=== PATIENT | female | born 1950 | race Caucasian/White ===

== ENCOUNTER 2017-08-19 05:59 | Inpatient (IN) | payer OTHER, MEDICARE ==
[2017-08-19] MEDS ORDERED: SODIUM CHLORIDE 0.9% 1,000 ML IV ONE ×2 (06:50→08:29)
[2017-08-19] MEDS ORDERED: ACETAMINOPHEN 325 MG TABLET PO STA (06:50)
[2017-08-19] MEDS ORDERED: ACETAMINOPHEN 325 MG TABLET PO ONE (07:10)
--- NOTE | 2017-08-19 07:14 | XRAY Preliminary Report ---
Exam: XR CHEST 1 VIEW IMPRESSION: No radiographically apparent acute abnormality in the chest. [facility] SITE ID: [id number]
--- NOTE | 2017-08-19 07:17 | XRAY Report ---
EXAM: CHEST RADIOGRAPHY EXAM DATE: 08/19/2017 07:04 AM. CLINICAL HISTORY: Chills, immunocompromised. COMPARISON: 11/19/2010. TECHNIQUE: 1 view. FINDINGS: Lungs/Pleura: No focal consolidation. No pneumothorax or definite pleural effusion. Mediastinum: Within exam limitations, the cardiomediastinal contour is normal. Other: Right chest port catheter tip is in the mid to lower SVC. IMPRESSION: No radiographically apparent acute abnormality in the chest. [facility] Referring Provider Line: [phone] SITE ID: [id number]
[2017-08-19 07:30] LABS: BASOPHILS % (AUTO) 0.2 %; EOSINOPHILS % (AUTO) 0.3 %; HCT - HEMATOCRIT 36.4 % (37.0-47.0); LYMPHOCYTES # (AUTO) 1.4 10^3/uL (1.5-3.5); LYMPHOCYTES % (AUTO) 7.2 %; MEAN CORPUSCULAR HEMOGLOBIN 30.6 pg (27.0-31.0); MEAN CORPUSCULAR HGB CONC 33.1 g/dL (32.0-36.0); MEAN CORPUSCULAR VOLUME 92.6 fL (81.0-99.0); MEAN PLATELET VOLUME 6.8 fL (7.9-10.8); MONOCYTES # (AUTO) 0.7 10^3/uL (0.0-1.0); MONOCYTES % (AUTO) 3.8 %; NEUTROPHILS # (AUTO) 16.7 10^3/uL (1.5-6.6); NEUTROPHILS % (AUTO) 88.5 %; RED BLOOD COUNT 3.92 10^6/uL (4.20-5.40); RED CELL DISTRIBUTION WIDTH 17.3 % (12.0-15.0); UNCORRECTED WHITE BLOOD COUNT 18.8 x10^3/uL; WHITE BLOOD COUNT 18.8 x10^3/uL (4.8-10.8)
[2017-08-19 07:49] LABS: ALBUMIN/GLOBULIN RATIO 0.7 (1.0-2.2); BILIRUBIN,TOTAL 0.3 mg/dL (0.2-1.0); CALCIUM 8.5 mg/dL (8.5-10.3); POTASSIUM 3.5 mmol/L (3.5-5.0); TOTAL PROTEIN 6.1 g/dL (6.7-8.2)
--- NOTE | 2017-08-19 08:00 | ED Physician Documentation ---
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 She is subsequently had treatment with radiation therapy at [facility] in [place] and she is returned from there 5 days ago. She is bedbound and her cares for her doing all of her transfers and care. Patient herself states that she feels dehydrated and confused. Gradual onset of fever chills and confusion overnight. Review of Systems Constitutional: reports: Fever, Chills, Myalgias, Fatigue, Sweats Eyes: denies: Decreased vision Ears: denies: Ear pain Nose: denies: Rhinorrhea / runny nose, Congestion Throat: denies: Sore throat Cardiac: denies: Chest pain / pressure, Palpitations Respiratory: denies: Dyspnea, Cough GI: reports: Abdominal Pain. denies: Nausea, Vomiting, Constipation, Diarrhea : denies: Dysuria, Frequency Skin: denies: Rash Musculoskeletal: reports: Extremity pain, Extremity swelling (right leg is swollen entirely). denies: Neck pain Neurologic: denies: Generalized weakness, Focal weakness, Numbness PD PAST MEDICAL HISTORY - Past Medical History Cardiovascular: None Respiratory: None Neuro: Peripheral neuropathy Endocrine/Autoimmune: None Psych: Depression Musculoskeletal: Osteoarthritis - Past Surgical History Past Surgical History: Yes Ortho: Carpal Tunnel surgery - Present Medications Home Medications: Ambulatory Orders Medication Instructions Recorded Confirmed Acetaminophen [Tylenol Extra 500 mg PO QID 05/04/16 05/04/16 Strength] Ibuprofen [Advil] 200 mg PO DAILY 05/04/16 05/04/16 Morphine Sulfate [Ms Contin] 15 mg PO DAILY 05/04/16 05/04/16 traMADol [Ultram] 50 mg PO Q4-6H 05/04/16 05/04/16 - Allergies Allergies/Adverse Reactions: Allergies Allergy/AdvReac Type Severity Reaction Status Date / Time hydrocodone Allergy Emesis Verified 05/04/16 08:18 - Social History Does the pt smoke?: No Smoking Status: Never smoker Does the pt drink ETOH?: No Does the pt have substance abuse?: No - Immunizations Immunizations are current?: Yes PD ED PE NORMAL - Vitals Vital signs reviewed: Yes (tachy and febrile ) - General General: No acute distress, Well developed/nourished, Other (67 y/o female with dry mucous membranes and no hair appears with a blunted affect and she has some latency to answer questions. She is inacurate in her answers. ) - HEENT HEENT: PERRL, EOMI, Other (There is a well healed surgical scar over the base of the skull without evidence of drainage or inflamation. There is mild inflamation to both TM's The mucous membranes are parched. ) - Neck Neck: Supple, no meningeal sign, No bony TTP - Cardiac Cardiac: No murmur, Other (tachy to 110) - Respiratory Respiratory: No respiratory distress, Clear bilaterally - Abdomen Abdomen: Soft, Non tender - Back Back: No CVA TTP, No spinal TTP - Derm Derm: Normal color, Warm and dry, No rash - Extremities Extremities: No deformity, Other - Neuro Neuro: Other (today there is relative symetry to the face and there is right sided weakness present as prior) Eye Opening: Spontaneous Motor: Obeys Commands Verbal: Oriented GCS Score: 15 - Psych Psych: Normal mood, Other (affect is blunted) Results - Vitals Vitals: Vital Signs - 24 hr 08/19/17 06:05 Temperature 37.7 C H Heart Rate 128 H Respiratory 24 Rate Blood Pressure 147/82 H O2 Saturation 94 Oxygen O2 Source Room air - Labs Labs: Laboratory Tests 08/19/17 08/19/17 08/19/17 07:23 07:23 07:23 WBC 18.8 H RBC 3.92 L Hgb 12.0 Hct 36.4 L MCV 92.6 MCH 30.6 MCHC 33.1 RDW 17.3 H Plt Count 253 MPV 6.8 L Neut # 16.7 H Lymph # 1.4 L [place] # 0.7 Eos # 0.0 Baso # 0.0 Absolute Nucleated RBC 0.01 Nucleated RBC % 0.0 Manual Slide Review Indicated RBC Morph Micro Appear 1+ ANISOCYTOSIS Sodium 135 Potassium 3.5 Chloride 99 L Carbon Dioxide 23 Anion Gap 13.0 BUN 22 H Creatinine 1.0 Estimated GFR (MDRD) 55 L Glucose 137 H Lactic Acid 2.3 H Calcium 8.5 Total Bilirubin 0.3 AST 23 ALT 20 Alkaline Phosphatase 85 Total Protein 6.1 L Albumin 2.5 L Globulin 3.6 Albumin/Globulin Ratio 0.7 L Lipase 25 Urine Color Urine Clarity Urine pH Ur Specific [place] Urine Protein Urine Glucose (UA) Urine Ketones Urine Occult Blood Urine Nitrite Urine Bilirubin Urine Urobilinogen Ur Leukocyte Esterase Urine RBC Urine WBC Urine WBC Clumps Ur Epithelial Cells Ur Squamous Epith Cells Urine Bacteria Ur Microscopic Review Urine Culture Comments 08/19/17 08:15 WBC RBC Hgb Hct MCV MCH MCHC RDW Plt Count MPV Neut # Lymph # [place] # Eos # Baso # Absolute Nucleated RBC Nucleated RBC % Manual Slide Review RBC Morph Micro Appear Sodium Potassium Chloride Carbon Dioxide Anion Gap BUN Creatinine Estimated GFR (MDRD) Glucose Lactic Acid Calcium Total Bilirubin AST ALT Alkaline Phosphatase Total Protein Albumin Globulin Albumin/Globulin Ratio Lipase Urine Color YELLOW Urine Clarity CLOUDY Urine pH 7.0 Ur Specific [place] 1.010 Urine Protein 100 H Urine Glucose (UA) NEGATIVE Urine Ketones NEGATIVE Urine Occult Blood LARGE H Urine Nitrite POSITIVE H Urine Bilirubin NEGATIVE Urine Urobilinogen 0.2 (NORMAL) Ur Leukocyte Esterase MODERATE H Urine RBC 6-10 H Urine WBC >25 H Urine WBC Clumps PRESENT Ur Epithelial Cells RARE Transitional Ur Squamous Epith Cells FEW Squamous Urine Bacteria Many H Ur Microscopic Review INDICATED Urine Culture Comments INDICATED - Rads (name of study) 1 view chest Radiology: Prelim report reviewed (Impression: No radiographically apparent acute abnormality in the chest.), EMP read indepedently, See rad report Procedures - IVC sono (time) 3366 Bedside IVC sono: IVC measures (cm) (0.80), IVC collapsed c insp (cm) (complete) , Dehydration PD MEDICAL DECISION MAKING - ED course Complexity details: reviewed old records, reviewed results, re-evaluated patient , considered differential, d/w patient, d/w family ED course: 67-year-old female undergoing treatment for metastatic cancer has developed a low-grade fever chills and confusion and she has elevated white blood cell count and evidence of dehydration. She does appear to have Sirs now. She also has swelling of right lower extremity with concern for possible DVT. Duplex ultrasound was ordered and the patient is begun on IV's fluids and antibiotic. Departure - Departure Disposition: 66 [facility] DC/Xfer Clinical Impression: SIRS (systemic inflammatory response syndrome) Urinary tract infection Qualifiers: Urinary tract infection type: acute cystitis Hematuria presence: without hematuria Qualified Code(s): N30.00 - Acute cystitis without hematuria Condition: Serious
[2017-08-19 08:27] LABS: BILIRUBIN,URINE NEGATIVE (NEGATIVE)
[2017-08-19] MEDS ORDERED: cefTRIAXone 1 GM in SODIUM CHLORIDE 0.9% MINIBAG 100 ML IV STA (08:49)
[2017-08-19 08:50] LABS: UA w/ MICROSCOPIC CHARGE YES
[2017-08-19 08:52] LABS: UR CULTURE IF IND INDICATED; WBC,URINE >25 /HPF (0-5)
[2017-08-19] MEDS ORDERED: cefTRIAXone 1 GM VIAL ONE (09:03)
[2017-08-19] MEDS ORDERED: oxyCODONE 5 MG TABLET PO STA (09:54)
[2017-08-19] MEDS ORDERED: oxyCODONE 5 MG TABLET ONE (10:01)
--- NOTE | 2017-08-19 10:18 | Ultrasound Report ---
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 TECHNIQUE: Real-time sonographic vascular imaging was performed by the chucking and boring machine operator through the right leg utilizing both color-flow and Doppler spectral analysis. Multiple solar sales representative static images were saved for review. FINDINGS: There is thrombus in the right common femoral and throughout the extent of the right super ficial femoral vein. The profunda femoris vein is suboptimally visualized. The popliteal vein appea rs unremarkable. Note is made of right inguinal lymphadenopathy, measuring up to 2.6 cm. IMPRESSION: RIGHT LEG DVT IN THE COMMON FEMORAL AND SUPERFICIAL FEMORAL VEINS. RIGHT INGUINAL ADENO CHRIS. CRITICAL RESULT: RESULTS CALLED TO DR. RABAGO IN THE EMERGENCY DEPARTMENT ON 08/19/2017 AT 9:50 A. M. JOB #: [id number] EXT JOB #:[id number]
[2017-08-19] MEDS: oxyCODONE 5 MG TABLET PO SCH ×3 (12:51→23:00)
[2017-08-19] MEDS: DEXAMETHASONE 4 MG TABLET PO SCH (13:15)
[2017-08-19] MEDS ORDERED: PROCHLORPERAZINE 10 MG/2 ML VIAL IVP PRN (14:54)
[2017-08-19] MEDS ORDERED: MAGNESIUM SULFATE 2 GRAM 2 GM/50 ML BAG IV SCH (15:00)
[2017-08-19] MEDS: SODIUM CHLORIDE FLUSH 0.9% 10 ML SYRINGE IVP PRN (15:26)
[2017-08-19] MEDS ORDERED: MAGNESIUM SULFATE 2 GM in SODIUM CHLORIDE 0.9% 50 ML IV ONE (16:00)
[2017-08-19] MEDS: RIVAROXABAN 15 MG TABLET PO SCH (16:42)
[2017-08-19] MEDS: DEXTROSE 5%-0.45% NACL 1,000 ML IV SCH (16:42)
[2017-08-19] MEDS: FAMOTIDINE 20 MG TABLET PO SCH (21:19)
[2017-08-19] MEDS: SODIUM CHLORIDE FLUSH 0.9% 10 ML SYRINGE IVP SCH (21:22)
[2017-08-20] MEDS: DEXTROSE 5%-0.45% NACL 1,000 ML IV SCH ×2 (04:39→17:14)
[2017-08-20] MEDS: oxyCODONE 5 MG TABLET PO SCH ×5 (04:40→23:47)
[2017-08-20] MEDS: SODIUM CHLORIDE FLUSH 0.9% 10 ML SYRINGE IVP SCH ×3 (04:42→20:40)
[2017-08-20 06:35] LABS: BASOPHILS % (AUTO) 0.2 %; EOSINOPHILS % (AUTO) 0.1 %; HCT - HEMATOCRIT 30.4 % (37.0-47.0); LYMPHOCYTES % (AUTO) 7.8 %; MEAN CORPUSCULAR HEMOGLOBIN 30.7 pg (27.0-31.0); MEAN CORPUSCULAR HGB CONC 32.8 g/dL (32.0-36.0); MEAN CORPUSCULAR VOLUME 93.6 fL (81.0-99.0); MEAN PLATELET VOLUME 7.1 fL (7.9-10.8); MONOCYTES # (AUTO) 0.4 10^3/uL (0.0-1.0); NEUTROPHILS # (AUTO) 11.1 10^3/uL (1.5-6.6); NEUTROPHILS % (AUTO) 88.9 %; RED BLOOD COUNT 3.25 10^6/uL (4.20-5.40); RED CELL DISTRIBUTION WIDTH 17.4 % (12.0-15.0); UNCORRECTED WHITE BLOOD COUNT 12.5 x10^3/uL; WHITE BLOOD COUNT 12.5 x10^3/uL (4.8-10.8)
[2017-08-20 06:44] LABS: CREATININE 0.9 mg/dL (0.4-1.0); MAGNESIUM 2.1 mg/dL (1.7-2.8); POTASSIUM 3.9 mmol/L (3.5-5.0)
[2017-08-20] MEDS: RIVAROXABAN 15 MG TABLET PO SCH ×2 (08:25→16:45)
[2017-08-20] MEDS: FAMOTIDINE 20 MG TABLET PO SCH ×2 (08:25→20:39)
[2017-08-20] MEDS: DEXAMETHASONE 4 MG TABLET PO SCH (08:26)
[2017-08-20] MEDS: cefTRIAXone 1 GM in SODIUM CHLORIDE 0.9% MINIBAG 100 ML IV SCH (08:26)
[2017-08-20] MEDS: POLYETHYLENE GLYCOL 3350 17 GM PACKET PO SCH (08:27)
--- NOTE | 2017-08-20 17:48 | HISTORY & PHYSICAL EXAMINATION ---
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 The patient has a history of stage IV cancer with metastasis to the brain stem, which has been treated with radiation therapy at [facility] in [place]. She stayed there for 6 weeks and just returned from there 5 days ago. This was an airline flight home. She has been fatigued since return and nearly bedbound with care by her , who needs to give her transfer for bathrooming. The patient was brought to the emergency room because of marked weakness, pain predominantly in her head and was confused. She also developed fever and chills over the past 12 hours. In the emergency room, she was noted to have tachycardia, fever, elevated white count with urine sample consistent with a UTI. She was admitted for sepsis, UTI treatment and dehydration and pain management. PMH: BUSINESS BANKING OFFICER stage IV malignancy with mets to the brain. MEDICATIONS AT HOME: 1. Tylenol Extra Strength. 2. Advil 200 mg p.o. daily. 3. MS Contin 15 mg p.o. daily. 4. Ultram 50 mg p.o. q.4-6 hours p.r.n. pain. 5. Possibly Dexamethasone ALLERGIES: HYDROCODONE, WHICH CAUSED "EMESIS," BUT NO RASH. SOCIAL HISTORY: The patient is a nonsmoker who never smoked, drinks no alcohol, has no substance abuse history. REVIEW OF SYSTEMS: A comprehensive review of systems was performed (her gave the entire report to me) and the only pertinent positives are as above in the HPI, along with the following: Her right leg has been swollen in the calf, as well as thigh with pain and tenderness. FAMILY HISTORY: No inherited diseases. PHYSICAL EXAMINATION: GENERAL: Reveals an obtunded white female. She arouses to her name, but is unable to follow commands or answer a question (she has just received narcotic doses for pain management). VITAL SIGNS: Blood pressure 147/82, pulse of 128 and sinus tachycardia, improved with hydration down to heart rate of 90. She has a temperature of 37.7. Her respiratory rate is 24 with oxygen saturation 94% on room air. HEENT: Shows dry oral mucosa, alopecia, otherwise unremarkable. NECK: Her neck shows no JVD. No carotid bruits, no thyromegaly or lymphadenopathy. CHEST: Clear at the anterior bases. HEART: Sounds are normal. No audible murmur, rub or gallop. ABDOMEN: Soft with positive bowel sounds, nontender. EXTREMITIES: Shows the right leg to have 2+ edema up to the groin. She is nontender to light palpation. There are no cords. Negative Homans sign. The left leg appears within normal limits. NEUROLOGIC: Currently somnolent because of recent narcotic use. LABORATORY: Sodium 135, potassium 3.5, BUN 22, creatinine 1.0. Lactic acid level 2.3, magnesium 1.5. Normal liver tests, albumin 2.5, no INR was done. White count 18.8 with a left shift (16% neutrophils), hemoglobin 12, platelet count normal at 253. Her urine showed esterase moderately high with positive nitrites, large occult blood and many bacteria with only a few squamous cells with an appropriate pH of 7.0. IMPRESSION/DIAGNOSES: 1. Sepsis with elevated white count, fever, tachycardia, and elevated lactic acid level. 2. Urinary tract infection. 3. Dehydration. 4. Chronic pain. 5. Brain metastasis from primary BUSINESS BANKING OFFICER malignancy. 6. 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 PLAN: Admit the patient to a med/surg bed. Start on telemetry because of the tachycardia. Begin IV hydration, especially since she may be somnolent and unable to take adequate p.o. intake for hydration. Start the patient on IV antibiotics to cover gram-negative organisms for a urinary tract infection. Obtain blood cultures to check for bacteremia. Continue with pain medication control using IV narcotics as needed. Consider palliative care consult for management of the pain. Begin the patient on Xarelto at DVT treatment doses which should be taken with food. Continue with dexamethasone which the told me at the end of our visit that she was also on and "gave her an improved appetite." Social work and OT and PT will be ordered for evaluation. Continue to follow her electrolytes, BUN and creatinine and CBC. JOB #: [id number] EXT JOB #:[id number] [email or web address]
--- NOTE | 2017-08-20 18:43 | PROVIDER PROGRESS NOTE ---
Subjective - Prog Note Date Prog Note Date: 08/20/17 Prog Note Time: 18:41 - Subjective Pt reports feeling: Improved Subjective: She feels like she is stronger. Actually able to hold up her head and speak clearly. She said that her head was in such a fog she did know what she was saying or what she was doing yesterday. She is still really tired. But was able to feed herself breakfast and lunch. Is drinking orange juice like there is no tomorrow. She denies chest pain, shortness of breath. She denies any abdominal pain. Current Medications - Current Medications Current Medications: Active Medications Dexamethasone (Decadron) 1 mg PO DAILY [facility] Stop: 08/26/17 10:00 Dexamethasone (Decadron) 2 mg PO DAILY [facility] Stop: 08/22/17 10:00 Last Admin: 08/20/17 08:26 Dose: 2 mg Famotidine (Pepcid) 20 mg PO BID [facility] Last Admin: 08/20/17 08:25 Dose: 20 mg Ceftriaxone Sodium 1 gm/ (Sodium Chloride) 100 mls @ 200 mls/hr IV DAILY [facility] Last Infusion: 08/20/17 09:35 Dose: Infused Acetaminophen (Ofirmev) 100 mls @ 400 mls/hr IV Q6HR PRN PRN Reason: PAIN Dextrose/Sodium Chloride (D5.45ns) 1,000 mls @ 80 mls/hr IV .[id number] [facility] Last Admin: 08/20/17 17:14 Dose: 80 mls/hr Oxycodone HCl (Roxicodone) 5 mg PO Q5H [facility] Last Admin: 08/20/17 13:59 Dose: 5 mg Polyethylene Glycol (Miralax) 17 gm PO DAILY [facility] Last Admin: 08/20/17 08:27 Dose: 17 gm Prochlorperazine Edisylate (Compazine Inj) 10 mg IVP Q6HR PRN PRN Reason: Nausea / Vomiting Rivaroxaban (Xarelto) 15 mg PO 0800,1700 [facility] Last Admin: 08/20/17 16:45 Dose: 15 mg Sodium Chloride (Normal Saline Flush 0.9%) 10 ml IVP PRN PRN PRN Reason: NEEDED PER PROVIDER ORDERS Last Admin: 08/19/17 15:26 Dose: 10 ml Sodium Chloride (Normal Saline Flush 0.9%) 10 ml IVP Q8HR BAL Last Admin: 08/20/17 12:27 Dose: Not Given Acetaminophen [Tylenol Extra Strength] 500 mg PO Q6H 05/04/16 Dexamethasone 1 mg PO [id number] 08/19/17 Dexamethasone 2 mg PO [id number] 08/19/17 oxyCODONE [Roxicodone] 5 mg PO Q5H 08/19/17 Objective - Vital Signs/Intake & Output Reviewed Vital Signs: Yes Intake & Output: Intake & Output 08/17/17 08/18/17 08/19/17 08/20/17 23:59 23:59 23:59 23:59 Intake Total 790 2296.000 Balance 790 2296.000 - Objective General Appearance: positive: No acute distress, Lethargic (Mildly so), Other ( Middle-aged white female who looks sleepy, with slow psychomotor responses, alopecia) Eyes Bilateral: positive: PERRL ENT: positive: Dry mucous membranes Neck: positive: No JVD. negative: Lymphadenopathy (R), Lymphadenopathy (L), Stiff neck Respiratory: positive: Chest non-tender. negative: Wheezes, Rales, Rhonchi Cardiovascular: positive: Regular rate & rhythm, Systolic murmur. negative: Gallop/S4, Friction rub Abdomen: positive: Non-tender, No organomegaly, Nml bowel sounds, No distention Extremities: positive: Pedal edema, Calf tenderness (And swelling of the right calf), Keshawn's sign/cords (Positive on right) Neurologic/Psychiatric: positive: Oriented x3, Motor nml (But slow.), Slurred/ abnml speech (Slow deliberate speech with tongue slightly sticks to the roof of her mouth and lips) - Lab Results Fish Bones: 08/20/17 06:25 08/20/17 06:25 Other Labs: Lab Results x24hrs 08/20/17 08/20/17 08/20/17 Range/Units 06:25 06:25 06:25 WBC 12.5 H (4.8-10.8) x10^3/uL RBC 3.25 L (4.20-5.40) 10^6/uL Hgb 10.0 L (12.0-16.0) g/dL Hct 30.4 L (37.0-47.0) % MCV 93.6 (81.0-99.0) fL MCH 30.7 (27.0-31.0) pg MCHC 32.8 (32.0-36.0) g/dL RDW 17.4 H (12.0-15.0) % Plt Count 154 (130-450) 10^3/uL MPV 7.1 L (7.9-10.8) fL Neut # 11.1 H (1.5-6.6) 10^3/uL Lymph # 1.0 L (1.5-3.5) 10^3/uL Green # 0.4 (0.0-1.0) 10^3/uL Eos # 0.0 (0.0-0.7) 10^3/uL Baso # 0.0 (0.0-0.1) 10^3/uL Absolute Nucleated RBC 0.00 x10^3/uL Nucleated RBC % 0.0 /100WBC Sodium 134 L (135-145) mmol/L Potassium 3.9 (3.5-5.0) mmol/L Chloride 103 (101-111) mmol/L Carbon Dioxide 24 (21-32) mmol/L Anion Gap 7.0 (6-13) BUN 21 H (6-20) mg/dL Creatinine 0.9 (0.4-1.0) mg/dL Estimated GFR (MDRD) 62 L (>89) Glucose 119 H (70-100) mg/dL Lactic Acid < 0.3 L (0.5-2.2) mmol/L Calcium 8.0 L (8.5-10.3) mg/dL Magnesium 2.1 (1.7-2.8) mg/dL Assessment/Plan - Problem List (1) Sepsis due to Escherichia coli Impression: She will presented as lethargy, dehydration after being home for 6 days. 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 Source appears to be E. coli. But urinalysis normal Plan: Kristin, day #2 Adjust treatment on the basis of sensitivities when they come in (2) Dehydration Impression: Mainly seen on physical exam. BUN mildly elevated. Creatinine staying normal. Plan: IV fluids until BUN normal and mucosa normal (3) Right leg DVT Impression: confirmed by venous doppler. Plan: Day #2 xarelto Qualifiers: Affected thrombotic vein of extremity: femoral Chronicity: acute Qualified Code(s): I82.411 - Acute embolism and thrombosis of right femoral vein
[2017-08-21] MEDS: oxyCODONE 5 MG TABLET PO SCH ×4 (05:34→20:31)
[2017-08-21] MEDS: DEXTROSE 5%-0.45% NACL 1,000 ML IV SCH ×2 (05:38→19:26)
[2017-08-21] MEDS: SODIUM CHLORIDE FLUSH 0.9% 10 ML SYRINGE IVP SCH ×3 (05:47→20:31)
[2017-08-21 06:06] LABS: BASOPHILS % (AUTO) 0.1 %; EOSINOPHILS % (AUTO) 0.1 %; HGB - HEMOGLOBIN 10.7 g/dL (12.0-16.0); LYMPHOCYTES % (AUTO) 8.1 %; MEAN CORPUSCULAR HEMOGLOBIN 30.9 pg (27.0-31.0); MEAN CORPUSCULAR HGB CONC 33.3 g/dL (32.0-36.0); MEAN CORPUSCULAR VOLUME 92.8 fL (81.0-99.0); MEAN PLATELET VOLUME 7.4 fL (7.9-10.8); MONOCYTES # (AUTO) 0.4 10^3/uL (0.0-1.0); NEUTROPHILS % (AUTO) 88.7 %; RED BLOOD COUNT 3.45 10^6/uL (4.20-5.40); RED CELL DISTRIBUTION WIDTH 16.4 % (12.0-15.0); UNCORRECTED WHITE BLOOD COUNT 12.4 x10^3/uL; WHITE BLOOD COUNT 12.4 x10^3/uL (4.8-10.8)
[2017-08-21 06:08] LABS: CALCIUM 8.6 mg/dL (8.5-10.3); CREATININE 0.9 mg/dL (0.4-1.0)
[2017-08-21] MEDS: cefTRIAXone 1 GM in SODIUM CHLORIDE 0.9% MINIBAG 100 ML IV SCH (08:37)
[2017-08-21] MEDS: DEXAMETHASONE 4 MG TABLET PO SCH (08:37)
[2017-08-21] MEDS: RIVAROXABAN 15 MG TABLET PO SCH ×2 (08:37→17:12)
[2017-08-21] MEDS: FAMOTIDINE 20 MG TABLET PO SCH ×2 (08:37→20:31)
[2017-08-21] MEDS: POLYETHYLENE GLYCOL 3350 17 GM PACKET PO SCH (08:39)
[2017-08-21] MEDS: ACETAMINOPHEN 1,000 MG/100 ML 100 ML IV PRN ×2 (11:07→22:28)
--- NOTE | 2017-08-21 15:53 | PROVIDER PROGRESS NOTE ---
Subjective - Prog Note Date Prog Note Date: 08/21/17 Prog Note Time: 16:13 - Subjective Subjective: This patient has had a waxing and waning course throughout the day. This morning she felt great. She felt she was back to baseline. Alert. And wanting to go home. 2-3 hours after that she was tearful, saying she was too weak to go home, and has been was beside himself. She denies any headache, chest pain, shortness of breath. No abdominal pain. She has been afebrile. Slowly feeding herself. Current Medications - Current Medications Current Medications: Active Medications Dexamethasone (Decadron) 1 mg PO DAILY [facility] Stop: 08/26/17 10:00 Dexamethasone (Decadron) 2 mg PO DAILY [facility] Stop: 08/22/17 10:00 Last Admin: 08/21/17 08:37 Dose: 2 mg Famotidine (Pepcid) 20 mg PO BID [facility] Last Admin: 08/21/17 08:37 Dose: 20 mg Ceftriaxone Sodium 1 gm/ (Sodium Chloride) 100 mls @ 200 mls/hr IV DAILY [facility] Last Infusion: 08/21/17 10:57 Dose: Infused Acetaminophen (Ofirmev) 100 mls @ 400 mls/hr IV Q6HR PRN PRN Reason: PAIN Last Infusion: 08/21/17 12:46 Dose: Infused Dextrose/Sodium Chloride (D5.45ns) 1,000 mls @ 80 mls/hr IV .[id number] [facility] Last Infusion: 08/21/17 06:18 Dose: 80 mls/hr Oxycodone HCl (Roxicodone) 5 mg PO Q5H [facility] Last Admin: 08/21/17 08:45 Dose: 5 mg Polyethylene Glycol (Miralax) 17 gm PO DAILY [facility] Last Admin: 08/21/17 08:39 Dose: Not Given Prochlorperazine Edisylate (Compazine Inj) 10 mg IVP Q6HR PRN PRN Reason: Nausea / Vomiting Rivaroxaban (Xarelto) 15 mg PO 0800,1700 [facility] Last Admin: 08/21/17 08:37 Dose: 15 mg Sodium Chloride (Normal Saline Flush 0.9%) 10 ml IVP PRN PRN PRN Reason: NEEDED PER PROVIDER ORDERS Last Admin: 08/19/17 15:26 Dose: 10 ml Sodium Chloride (Normal Saline Flush 0.9%) 10 ml IVP Q8HR BAL Last Admin: 08/21/17 13:11 Dose: Not Given Acetaminophen [Tylenol Extra Strength] 500 mg PO Q6H 05/04/16 Dexamethasone 1 mg PO QDX4D 08/19/17 Dexamethasone 2 mg PO [id number] 08/19/17 oxyCODONE [Roxicodone] 5 mg PO Q5H 08/19/17 Objective - Vital Signs/Intake & Output Reviewed Vital Signs: Yes Vital Signs: Vital Signs x48h Temp Pulse Resp BP Pulse Ox 08/21/17 15:43 36.6 C 80 17 146/72 H 98 08/21/17 13:04 85 131/58 H 08/21/17 08:03 36.8 C 74 16 160/84 H 98 Intake & Output: Intake & Output 08/18/17 08/19/17 08/20/17 08/21/17 23:59 23:59 23:59 23:59 Intake Total 790 2646.000 1723.333 Balance 790 2646.000 1723.333 - Objective General Appearance: positive: No acute distress, Other (Middle-aged plump sheet female with alopecia, moderate psychomotor slowing) Eyes Bilateral: positive: PERRL, EOMI ENT: positive: Other (lips with one crack) Neck: positive: No JVD. negative: Stiff neck, Carotid bruit Respiratory: positive: No respiratory distress. negative: Wheezes, Rales, Rhonchi Cardiovascular: positive: Regular rate & rhythm. negative: Systolic murmur, Gallop/S4, Friction rub Abdomen: positive: Non-tender, No organomegaly, Nml bowel sounds, No distention Skin: positive: Warm, Dry Extremities: positive: Full ROM, Calf tenderness (right leg), Keshawn's sign/ cords (right leg) Neurologic/Psychiatric: positive: Disoriented to time, Slurred/abnml speech, Depressed mood/affect. negative: Motor nml, Mood/affect nml (tearful) - Lab Results Fish Bones: 08/21/17 05:48 08/21/17 05:40 Other Labs: Lab Results x24hrs 08/21/17 08/21/17 Range/Units 05:48 05:40 WBC 12.4 H (4.8-10.8) x10^3/uL RBC 3.45 L (4.20-5.40) 10^6/uL Hgb 10.7 L (12.0-16.0) g/dL Hct 32.0 L (37.0-47.0) % MCV 92.8 (81.0-99.0) fL MCH 30.9 (27.0-31.0) pg MCHC 33.3 (32.0-36.0) g/dL RDW 16.4 H (12.0-15.0) % Plt Count 191 (130-450) 10^3/uL MPV 7.4 L (7.9-10.8) fL Neut # 11.0 H (1.5-6.6) 10^3/uL Lymph # 1.0 L (1.5-3.5) 10^3/uL Slope # 0.4 (0.0-1.0) 10^3/uL Eos # 0.0 (0.0-0.7) 10^3/uL Baso # 0.0 (0.0-0.1) 10^3/uL Absolute Nucleated RBC 0.00 x10^3/uL Nucleated RBC % 0.0 /100WBC Sodium 134 L (135-145) mmol/L Potassium 4.0 (3.5-5.0) mmol/L Chloride 98 L (101-111) mmol/L Carbon Dioxide 26 (21-32) mmol/L Anion Gap 10.0 (6-13) BUN 21 H (6-20) mg/dL Creatinine 0.9 (0.4-1.0) mg/dL Estimated GFR (MDRD) 62 L (>89) Glucose 146 H (70-100) mg/dL Calcium 8.6 (8.5-10.3) mg/dL Assessment/Plan - Problem List (1) Sepsis due to Escherichia coli Impression: She will presented as lethargy, dehydration after being home for 6 days. 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 Source appears to be E. coli. But urinalysis normal Plan: Rocephin, day #3 Adjust treatment on the basis of sensitivities when they come in. So far sensitive to usual antibiotics. when she goes home change to cipro for total of 10 days of antibiotics. (2) Dehydration Impression: Mainly seen on physical exam. BUN mildly elevated. Creatinine staying normal. Plan: IV fluids until BUN normal and mucosa normal (3) Right leg DVT Impression: confirmed by venous doppler. 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 Even with that, speech is slowed and slightly slurred. Thought process is very slow. While she is able to do things like to slowly feed herself, bring a cup of coffee to her mouth, it is done deliberately and slowly and with great attention to make sure she does not drop things. She will get easily confused with more than 2 much data or conversation going on at the same time. Long talk with her about his plans and her plans. They plan on continuing to fight her cancer if it comes back. In other words they will do more surgery or more chemotherapy or more radiation if it is offered to them. He desperately needs to get back to work because he is the breadwinner in the family with insurance benefits. I pointed out to him that he may need someone to take care of her. This resulted in a flurry of activity for the next few hours. Final decision is that her mom and stepdad will take care of her during the daytime hours so that he can work. I have filled out a DMV disability placard for her.
[2017-08-21] MEDS ORDERED: ONDANSETRON 4 MG/2 ML VIAL IVP PRN (20:36)
[2017-08-21] MEDS ORDERED: ONDANSETRON ODT 4 MG TABLET TL PRN (20:36)
[2017-08-22] MEDS: oxyCODONE 5 MG TABLET PO SCH ×2 (01:01→05:40)
[2017-08-22] MEDS: DEXTROSE 5%-0.45% NACL 1,000 ML IV SCH (05:40)
[2017-08-22] MEDS: SODIUM CHLORIDE FLUSH 0.9% 10 ML SYRINGE IVP SCH (05:50)
[2017-08-22 06:28] LABS: BASOPHILS # (AUTO) 0.1 10^3/uL (0.0-0.1); BASOPHILS % (AUTO) 0.7 %; EOSINOPHILS % (AUTO) 0.1 %; HCT - HEMATOCRIT 31.4 % (37.0-47.0); HGB - HEMOGLOBIN 10.3 g/dL (12.0-16.0); LYMPHOCYTES % (AUTO) 11.4 %; MEAN CORPUSCULAR HEMOGLOBIN 30.2 pg (27.0-31.0); MEAN CORPUSCULAR HGB CONC 32.8 g/dL (32.0-36.0); MEAN CORPUSCULAR VOLUME 92.1 fL (81.0-99.0); MEAN PLATELET VOLUME 7.2 fL (7.9-10.8); MONOCYTES # (AUTO) 0.3 10^3/uL (0.0-1.0); MONOCYTES % (AUTO) 3.9 %; NEUTROPHILS # (AUTO) 7.2 10^3/uL (1.5-6.6); NEUTROPHILS % (AUTO) 83.9 %; RED BLOOD COUNT 3.41 10^6/uL (4.20-5.40); RED CELL DISTRIBUTION WIDTH 16.9 % (12.0-15.0); UNCORRECTED WHITE BLOOD COUNT 8.6 x10^3/uL; WHITE BLOOD COUNT 8.6 x10^3/uL (4.8-10.8)
[2017-08-22 06:36] LABS: CALCIUM 8.7 mg/dL (8.5-10.3); CREATININE 0.8 mg/dL (0.4-1.0); POTASSIUM 3.9 mmol/L (3.5-5.0)
--- NOTE | 2017-08-22 08:08 | Discharge Plan ---
Discharge Plan Disposition: Home Health Service Condition: Fair Prescriptions: Levofloxacin [Levaquin] 500 mg PO DAILY #6 tablet Rivaroxaban [Xarelto] 15 mg PO 0800,1700 #35 tablet Rivaroxaban [Xarelto] 20 mg PO DAILY #30 tablet Diet: Regular Activity Restrictions: Activity as Tolerated Shower Restrictions: No Driving Restrictions: Yes (no driving) Assistance Devices: Wheelchair, Walker Additional Instructions or Follow Up instructions: You were admitted to the hospital because of severe weakness, lethargy and a change in your alertness level. 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 You have undergone chemotherapy, radiation therapy and surgical resection of the brain mass. This is left you with cognitive impairment, which means you have a slow thought process with the slow ability to move quickly or speak quickly. You had only just returned from your treatment and had been home about for 5 days. We found you to have severe dehydration, and sepsis. Although your urine did not grow out anything, your blood cultures grew out E. coli and your urine did seem to be contaminated. So we think the source of your sepsis was the urine. As such, you will need a total of 10 days of antibiotics. You have already received 4 days in the hospital and you will get 6 more days of Levaquin at home. In addition to the dehydration and sepsis, you have a deep venous thrombosis in your right leg. We have started you on Xarelto, a powerful blood thinner, to anticoagulate you. Please discuss the duration of therapy with either your primary care provider or oncologist. The first 21 days of Xarelto 15 mg are with meals twice a day. After 21 days, and on day 22, you switch to Xarelto 20 mg with meals once a day. That is another issue that unfortunately you will need to address. You need to establish herself with a primary care provider quickly. There are many issues that will need to be addressed and you and your will need help having someone guide you through referrals. He will also need paperwork, etc. filled out. I was able to fill out a DMV handicap placard form but that is usually the job of your primary care provider. You will also need to establish yourself with an oncologist. You have explained to me that your is already working on that. It is important that you see someone in the next 1-2 weeks. director clinical information services has given you a list of primary care providers. You already have a name of an oncologist you want to see. Please have your or her your mom and stepdad make every effort to get you to an appointment in the next 2 weeks. Because you are so weak, and deconditioned, I am also sending you home with home health physical therapy and Occupational Therapy. A 7th grade social studies teacher can also come to the house to see you to help guide you to the process and help you get established with new providers. You have a lot of decisions to make with after discussing them with your . You have not specified when you think you might want to stop therapy. And you have never really thought about advanced directives such as CODE STATUS. As such, by default, you will remain a full code. To help you with your symptoms, and guide you in making decisions that you feel are in your own best interest, I am making referral for Palliative Care consult as well. They will come to your house and see you there. Follow-Up Care: Home Health - PT, Home Health - OT, Home Health - ST No Smoking: If you smoke, Please STOP! Call for help.
[2017-08-22] MEDS: DEXAMETHASONE 4 MG TABLET PO SCH (08:33)
[2017-08-22] MEDS: RIVAROXABAN 15 MG TABLET PO SCH (08:33)
[2017-08-22] MEDS: ACETAMINOPHEN 1,000 MG/100 ML 100 ML IV PRN (08:34)
[2017-08-22] MEDS: POLYETHYLENE GLYCOL 3350 17 GM PACKET PO SCH (08:34)
[2017-08-22] MEDS: FAMOTIDINE 20 MG TABLET PO SCH (08:42)
[2017-08-22 08:59] VITALS: BP 153/80
[2017-08-22] MEDS: cefTRIAXone 1 GM in SODIUM CHLORIDE 0.9% MINIBAG 100 ML IV SCH (09:47)
[2017-08-22] MEDS: SODIUM CHLORIDE FLUSH 0.9% 10 ML SYRINGE IVP PRN (10:10)
--- NOTE | 2017-08-22 18:25 | ADVANCE CARE PLANNING NOTE ---
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 She has subsequently gone on to have therapy locally but was dissatisfied with her options here and ended up having her care with [facility] in [place]. She was just there for 6 weeks and ended up having a craniotomy for tumor resection, radiation therapy, and chemotherapy. She is living with her significant other. This is her second relationship. Her mother and stepfather live nearby. He has been off work for 2 months as he supports her through this arduous journey of survival. He is getting ready to get back to work and is starting to worry about how he can keep his job, keep his benefits, and still take care of her. They have never been told about her prognosis. They do not know what her survivability is. He states that he does not even know if he wants to know. She says that she is not ready to face that information yet. They both know that they want to continue therapy for as long as possible. If she has to do more radiation, more chemo or more surgery she wants to do it. Since her surgery most recently, she is completely dependent on her spouse for activities of daily living. 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 When she got back from [place] last week, she was unusually tired. As the days of progress she is gotten more lethargic. Her that she was just getting frankly confused and not eating. So he brought her to the emergency room. 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 Prognosis is poor. She has been found to have a UTI but urine culture has been negative because of poly-bacterial contamination. However she has bacteremia with E. coli. She has chronic headaches from the recent surgery. Chronic neck pain. Chronic abdominal pain.She has also been identified as having DVT of the right leg She has significant psychomotor slowing. Cognitive deficits. She gets easily confused if to many conversations go on it once, or you ask her to many questions that she is to answer. - Goals of Care Goals of care determinations: She wants to continue therapy and all forms. If there is aggressive intervention to be given she would like it. If that means intubation for pneumonia, surgery for gallbladder, etc., whatever, she wants it. When asked about resuscitative status, she says that she cannot make that decision at this time. As such by default she will be a full code and she accepts that. - Plan Plan: She and her will start to explore what her options will be with regards to needing caregivers. When asked if she needed to go to a [facility] facility she was tentatively in agreement with that but her could not bear. So while we initially were transferring her to [facility], he stopped the process. He is taking her home and she is going home with home health. For the care of her mother and stepfather. He is hoping to go back to work to resume his benefits. Both of them have been strongly encouraged to get her a primary care provider as soon as possible. He is already needing paperwork to be filled out, and anticipates other things that need to be done. I told him that while a cancer specialist would be willing to do that the usually reliable on the primary care colleagues to do that. She also does not have a local oncologist. So she plans on continuing therapy she needs surveillance, and assessment for treatment. And as such needs to reestablish with another oncologist. - Code Status Code Status: Attempt Resuscitation
[2017-08-23] MEDS ORDERED: DEXAMETHASONE 1 MG TABLET PO SCH (09:00)
--- NOTE | 2017-08-23 21:15 | DISCHARGE SUMMARY ---
DATE OF ADMISSION: 08/19/2017 DATE OF DISCHARGE: 08/22/2017 DISCHARGE DIAGNOSES: 1. Sepsis due to Escherichia coli. 2. Dehydration. 3. Deep venous thrombosis. 4. 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 5. 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 DISCHARGE MEDICATIONS: 1. Tylenol Extra Strength 500 q.6h. p.r.n. 2. Dexamethasone 1 mg daily for 4 days. She has already completed this. 3. Levaquin 500 mg p.o. daily, #6. 4. Roxicodone 5 mg p.o. q.5h. p.r.n. 5. Xarelto 15 mg p.o. b.i.d., to complete 35 more tablets and then switch to 20 mg a day on day 22 indefinitely. PRINCIPAL PROCEDURES: 1. Chest x-ray with no acute abnormalities in the chest. 2. Venous duplex study with right leg DVT in the common femoral and superficial femoral veins. 3. Blood cultures growing out E coli sensitive to Levaquin and ampicillin and cefazolin. 4. Urine cultures with greater than 100,000 colony forming units of a polymicrobial. 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 This was approximately 2015. She was unhappy with her care in the [facility] and relocated to [place] to [facility] and underwent 6 weeks of therapy with chemoradiation after craniotomy to remove brain metastasis. She just returned a week ago. She began becoming lethargic, more confused according to her partner. She was brought to the emergency room. She was identified as having sepsis. An abnormal urinalysis indicated the source may be a UTI. However, those cultures ended up growing polymicrobial bacteria, and only her bacteremia grew out E coli. She responded to IV fluids, IV antibiotics, and pain medicines. The patient is a FULL CODE and advance care planning was done and noted under separate dictation. On the day of discharge, sodium was 136, BUN and creatinine were 21 and 0.8. Lactic acid which had initially been 2.3 was 0.3. White cell count which was 18.8 on admission was down to 8.6. She was noted to have a mild anemia with her hemoglobin started at 12 and drifted to 10.3. The patient became more alert during her stay, but intermittently tearful and easily overwhelmed. Part of the discussion centered on who was going to be taking care of her when she was at home and her spouse had to return to work. This was a great stressor for both of them as they thought this out. He has been off work for 2 months, as he has been taking care of her and doing the trip with her for the cancer treatment. Because of a swollen right leg, an ultrasound was done and showed a DVT and she was given Xarelto. It is thought that that might need to be changed because DVTs associated with gynecologic cancer are usually treated with Lovenox indefinitely. I am the hospitalist that came on service after several days, and have opted to continue her on the same therapy. She is discharged in stable condition. She is afebrile at 36.4. Pulse is 76, blood pressure 153/80, respirations 16, 98% on room air. She is a slightly cushingoid facies, middle-aged female. She has alopecia. Wears glasses. Face is flat at times. Psychomotor retardation from craniotomy present. Cognitive deficits present. Lungs are clear. Regular rate and rhythm. The abdomen is soft , normal bowel sounds. She has right leg edema and the calf is tight and shiny but almost no pain there. Most of her pain centers around her headaches and her craniotomy scar. Left leg is normal. She is not able to easily sit to transfer unless there is an assist. She needed bowel protocol before discharge to have a bowel movement. When sitting, she is able to position herself and feed herself slowly. Appetite was actually quite good during her stay, and she liked breakfast. Greater than 30 minutes was spent coordinating discharge. After discharge, I was called by the pharmacy to say that her Xarelto would not be covered. The pharmacist also questioned my giving her only 35 tablets as opposed to 42 tablets. I explained that already received those doses in the hospital. On day 22, she is to transition to Xarelto 20 mg a day. I filled out a prior auth. Initially, the patient was not going to get medications until Thursday, and I began calling around to see if she would be a candidate for Lovenox. However, when I called the pharmacist a third time, they said the prior auth had gone through and she had picked up her Xarelto. Greater than 30 minutes (45) was spent in coordinating discharge. JOB #: [id number] EXT JOB #:[id number] [place]
== END 2017-08-22 10:28 | disposition home or self-care (01) | DRG 872 ==
LOC: ED 05:59 → MS2 11:34
PROVIDERS: ADMIT Internal Medicine; ATTEND Specialist
DX: A41.51 Sepsis due to Escherichia coli [E. coli] (principal); N30.00 Acute cystitis without hematuria; I82.411 Acute embolism and thrombosis of right femoral vein; C79.31 Secondary malignant neoplasm of brain; E86.0 Dehydration; C76.3 Malignant neoplasm of pelvis; D64.9 Anemia, unspecified; G89.28 Other chronic postprocedural pain; R41.89 Other symptoms and signs involving cognitive functions and awareness; R46.4 Slowness and poor responsiveness; Z98.890 Other specified postprocedural states; Z74.01 Bed confinement status; Z92.21 Personal history of antineoplastic chemotherapy; Z92.3 Personal history of irradiation; Z79.891 Long term (current) use of opiate analgesic; Z79.52 Long term (current) use of systemic steroids
CPT/HCPCS: 36415; 71010; 80048; 80053; 81001; 81003; 83605; 83690; 83735; 85025; 87040; 87086; 96361; 96365; 99283; 99284; 99285

== ENCOUNTER 2017-08-27 00:26 | Outpatient (CLI) | payer OTHER, MEDICARE | END 2017-08-27 00:27 | disposition critical access hospital (66) | LOC: EMS 00:26 | PROVIDERS: ATTEND Surgery | DX: R41.82 Altered mental status, unspecified (principal) | CPT/HCPCS: A0425; A0429 ==

== ENCOUNTER 2017-08-27 00:34 | Inpatient (IN) | payer OTHER, MEDICARE ==
--- NOTE | 2017-08-27 00:49 | ED Physician Documentation ---
History of Present Illness - Stated complaint Stated Complaint: CHILLS/PN - Chief complaint Chief Complaint: General - History obtained from History obtained from: Family, EMS - History of Present Illness Timing: Today Pain level now: 7 Improved by: no apparent ameliorating factors Worsened by: no apparent exacerbating or inciting factors - Additonal information Additional information: [place]. Family called 911 due to altered mental status. She was discharged 08/[address] [facility] after admission 08/19 for AMS that was due to UTI. She has h/o female "serous carcinoma" (from discharge summary) with brain metastases. Two months ago (June,), she underwent surgery and radiation tx. to treat the brain masses; this was done in [place]. Patient unable to contribute to [employer]'s HPI/ROS, as she is severely altered. Per family, she had fever of over 101, accompanied by AMS and shaking chills; this started this evening. Review of Systems Unable to obtain: Other (limited due to AMS; family able to provide a few ROS answers) Constitutional: reports: Fever, Chills Respiratory: denies: Cough GI: denies: Vomiting Neurologic: reports: Confused, Altered mental status PD PAST MEDICAL HISTORY - Past Medical History Cardiovascular: None Respiratory: None Neuro: Peripheral neuropathy Endocrine/Autoimmune: None Psych: Depression Musculoskeletal: Osteoarthritis - Past Surgical History Past Surgical History: Yes Ortho: Carpal Tunnel surgery - Present Medications Home Medications: Ambulatory Orders Medication Instructions Recorded Confirmed Acetaminophen [Tylenol Extra 1,000 mg PO Q6H PRN 05/04/16 08/27/17 Strength] Dexamethasone 1 mg PO QDX4D 08/19/17 08/27/17 oxyCODONE [Roxicodone] 5 mg PO Q5H PRN 08/19/17 08/27/17 Levofloxacin [Levaquin] 500 mg PO DAILY #6 tablet 08/22/17 08/27/17 Rivaroxaban [Xarelto] 15 mg PO 0800,1700 #35 tablet 08/22/17 08/27/17 Rivaroxaban [Xarelto] 20 mg PO DAILY #30 tablet 08/22/17 08/27/17 Pantoprazole [Protonix] 1 tab PO DAILY 08/27/17 08/27/17 Thiamine HCl [Vitamin B-1] 100 mg PO DAILY 08/27/17 08/27/17 - Allergies Allergies/Adverse Reactions: Allergies Allergy/AdvReac Type Severity Reaction Status Date / Time hydrocodone Allergy Unknown Emesis Verified 08/27/17 02:54 - Social History Does the pt smoke?: No Smoking Status: Never smoker Does the pt drink ETOH?: No Does the pt have substance abuse?: No - Immunizations Immunizations are current?: Yes PD ED PE NORMAL - Vitals Vital signs reviewed: Yes - General General: No acute distress, Well developed/nourished, Other (does not follow commands except she briefly opened her eyes when asked (and only once; subsequently did not follow this command or any others).) - HEENT HEENT: PERRL, Other (dry mucous membranes) - Cardiac Cardiac: No murmur - Respiratory Respiratory: No respiratory distress, Clear bilaterally - Abdomen Abdomen: Soft, Non tender, Non distended, Other (decreased bowel sounds) - Derm Derm: Normal color, Warm and dry - Extremities Extremities: Other (RLE edema) - Neuro Eye Opening: To Voice (once (this is "best response")) Motor: Localizes to Pain Verbal: None GCS Score: 9 PD ED PE EXPANDED - Cardiac Cardiac: Tachy, Regular Rhythm Results - Vitals Vitals: Vital Signs - 24 hr 08/27/17 08/27/17 08/27/17 00:36 01:22 01:44 Temperature 37.7 C H 39.5 C H Heart Rate 162 H 126 H 121 H Respiratory 25 H 19 27 H Rate Blood Pressure 176/98 H 123/66 123/58 L O2 Saturation 98 97 92 08/27/17 08/27/17 08/27/17 01:57 02:15 02:28 Temperature Heart Rate 121 H 118 H 113 H Respiratory 26 H 16 12 Rate Blood Pressure 123/67 112/57 L 117/60 O2 Saturation 94 93 94 08/27/17 02:35 Temperature Heart Rate 113 H Respiratory 14 Rate Blood Pressure 109/59 L O2 Saturation 94 Oxygen O2 Source Nasal cannula Oxygen Flow Rate 2 - EKG (time done) No standard instances Rate: Rate (enter#) (130) Rhythm: Sinus tachycardia [place]: Normal - Labs Labs: Laboratory Tests 08/27/17 08/27/17 08/27/17 00:50 00:50 00:50 WBC 5.0 RBC 3.84 L Hgb 11.9 L Hct 34.9 L MCV 90.9 MCH 31.0 MCHC 34.1 RDW 16.6 H Plt Count 177 MPV 7.6 L Neut # 3.5 Lymph # 1.4 L [place] # 0.0 Eos # 0.0 Baso # 0.0 Absolute Nucleated RBC 0.02 Nucleated RBC % 0.4 PT 25.3 H INR 2.3 H APTT 57.8 H Sodium 131 L Potassium 4.2 Chloride 98 L Carbon Dioxide 19 L Anion Gap 14.0 H BUN 28 H Creatinine 1.5 H Estimated GFR (MDRD) 35 L Glucose 89 Lactic Acid Calcium 8.3 L Total Bilirubin 0.5 AST 26 ALT 17 Alkaline Phosphatase 106 Troponin I Total Protein 6.6 L Albumin 2.5 L Globulin 4.1 Albumin/Globulin Ratio 0.6 L Lipase 23 Urine Color Urine Clarity Urine pH Ur Specific [place] Urine Protein Urine Glucose (UA) Urine Ketones Urine Occult Blood Urine Nitrite Urine Bilirubin Urine Urobilinogen Ur Leukocyte Esterase Urine RBC Urine WBC Ur Squamous Epith Cells Urine Bacteria Ur Microscopic Review Urine Culture Comments Influenza A (Rapid) Influenza B (Rapid) Influenza Types A,B Ag 08/27/17 08/27/17 08/27/17 00:50 00:50 01:50 WBC RBC Hgb Hct MCV MCH MCHC RDW Plt Count MPV Neut # Lymph # [place] # Eos # Baso # Absolute Nucleated RBC Nucleated RBC % PT INR APTT Sodium Potassium Chloride Carbon Dioxide Anion Gap BUN Creatinine Estimated GFR (MDRD) Glucose Lactic Acid 3.1 H* Calcium Total Bilirubin AST ALT Alkaline Phosphatase Troponin I < 0.04 Total Protein Albumin Globulin Albumin/Globulin Ratio Lipase Urine Color YELLOW Urine Clarity HAZY Urine pH 6.0 Ur Specific [place] 1.015 Urine Protein 100 H Urine Glucose (UA) NEGATIVE Urine Ketones NEGATIVE Urine Occult Blood LARGE H Urine Nitrite NEGATIVE Urine Bilirubin NEGATIVE Urine Urobilinogen 0.2 (NORMAL) Ur Leukocyte Esterase TRACE H Urine RBC TNTC H Urine WBC 6-10 H Ur Squamous Epith Cells RARE Squamous Urine Bacteria Few Ur Microscopic Review INDICATED Urine Culture Comments INDICATED Influenza A (Rapid) Influenza B (Rapid) Influenza Types A,B Ag 08/27/17 02:10 WBC RBC Hgb Hct MCV MCH MCHC RDW Plt Count MPV Neut # Lymph # [place] # Eos # Baso # Absolute Nucleated RBC Nucleated RBC % PT INR APTT Sodium Potassium Chloride Carbon Dioxide Anion Gap BUN Creatinine Estimated GFR (MDRD) Glucose Lactic Acid Calcium Total Bilirubin AST ALT Alkaline Phosphatase Troponin I Total Protein Albumin Globulin Albumin/Globulin Ratio Lipase Urine Color Urine Clarity Urine pH Ur Specific [place] Urine Protein Urine Glucose (UA) Urine Ketones Urine Occult Blood Urine Nitrite Urine Bilirubin Urine Urobilinogen Ur Leukocyte Esterase Urine RBC Urine WBC Ur Squamous Epith Cells Urine Bacteria Ur Microscopic Review Urine Culture Comments Influenza A (Rapid) Negative Influenza B (Rapid) Negative Influenza Types A,B Ag - - Rads (name of study) CT head Radiology: Prelim report reviewed, See rad report chest xray Radiology: Prelim report reviewed, See rad report PD MEDICAL DECISION MAKING - ED course Complexity details: considered differential, d/w patient, d/w family Departure - Departure Disposition: 66 [facility] DC/Xfer Clinical Impression: Altered mental status Qualifiers: Altered mental status type: unspecified Qualified Code(s): R41.82 - Altered mental status, unspecified Fever Qualifiers: Fever type: unspecified Qualified Code(s): R50.9 - Fever, unspecified Condition: Stable
[2017-08-27] MEDS ORDERED: SODIUM CHLORIDE 0.9% 500 ML IV STA (01:22)
[2017-08-27 01:23] LABS: BASOPHILS % (AUTO) 0.3 %; EOSINOPHILS % (AUTO) 0.9 %; HCT - HEMATOCRIT 34.9 % (37.0-47.0); HGB - HEMOGLOBIN 11.9 g/dL (12.0-16.0); LYMPHOCYTES # (AUTO) 1.4 10^3/uL (1.5-3.5); LYMPHOCYTES % (AUTO) 28.6 %; MEAN CORPUSCULAR HGB CONC 34.1 g/dL (32.0-36.0); MEAN CORPUSCULAR VOLUME 90.9 fL (81.0-99.0); MEAN PLATELET VOLUME 7.6 fL (7.9-10.8); MONOCYTES % (AUTO) 0.9 %; NEUTROPHILS # (AUTO) 3.5 10^3/uL (1.5-6.6); NEUTROPHILS % (AUTO) 69.3 %; NUCLEATED RED BLOOD CELLS AUTO 0.4 /100WBC; RED BLOOD COUNT 3.84 10^6/uL (4.20-5.40); RED CELL DISTRIBUTION WIDTH 16.6 % (12.0-15.0)
[2017-08-27 01:27] LABS: INR 2.3 (0.8-1.2); PT - PROTHROMBIN TIME 25.3 secs (9.9-12.6)
[2017-08-27 01:31] LABS: ALBUMIN/GLOBULIN RATIO 0.6 (1.0-2.2); BILIRUBIN,TOTAL 0.5 mg/dL (0.2-1.0); CALCIUM 8.3 mg/dL (8.5-10.3); CREATININE 1.5 mg/dL (0.4-1.0); POTASSIUM 4.2 mmol/L (3.5-5.0); TOTAL PROTEIN 6.6 g/dL (6.7-8.2)
[2017-08-27 01:35] LABS: PARTIAL THROMBOPLASTIN TIME 57.8 secs (24.9-33.3)
--- NOTE | 2017-08-27 01:51 | CT Preliminary Report ---
Exam: CT HEAD W/O IMPRESSION: 1. Chronic appearing postoperative changes in the right cerebellum. 2. No definite acute intracranial process identified. [facility] S[id number]
--- NOTE | 2017-08-27 01:55 | XRAY Preliminary Report ---
Exam: XR CHEST 1 VIEW IMPRESSION: 1. Mild bronchial wall thickening. This can be seen with bronchitis or reactive airways disease. 2. No acute abnormality seen. [facility] SITE ID: [id number]
--- NOTE | 2017-08-27 01:57 | CT Report ---
EXAM: CT HEAD EXAM DATE: 08/27/2017 01:42 AM. CLINICAL HISTORY: Altered mental status. COMPARISON: None. TECHNIQUE: Multiaxial CT images were obtained from the foramen magnum to the vertex. IV contrast: Non e. Reformats: Coronal. In accordance with CT protocol optimization, one or more of the following dose reduction techniques w ere utilized for this exam: automated exposure control, adjustment of mA and/or KV based on patient s ize, or use of iterative reconstructive technique. FINDINGS: Parenchyma: No intraparenchymal hemorrhage. No evidence of mass, midline shift, or CT findings of acu te infarction. A moderate-sized area of encephalomalacia is present in the right superior cerebellum, possibly related to prior surgery. Hartley-white differentiation is distinct elsewhere in the brain. Mi ld diffuse chronic microangiopathic white matter changes are evident. Extraaxial Spaces: No acute subdural or epidural collections identified. Ventricles: The ventricles and cortical sulci are moderately enlarged, consistent with age-related ti ssue loss. Ex vacuo dilation of the fourth ventricle is noted, related to the adjacent right cerebell ar encephalomalacia. Sinuses and orbits: Imaged paranasal sinuses, orbits, and mastoids show no significant abnormality. Bones: Right suboccipital craniotomy changes are demonstrated from prior brain surgery. Other: Moderate intracranial atherosclerosis is noted. IMPRESSION: 1. Chronic-appearing postoperative changes in the right cerebellum. 2. No definite acute intracranial process identified. [facility] Referring Provider Line: [phone] SITE ID: [id number]
--- NOTE | 2017-08-27 01:58 | XRAY Report ---
EXAM: CHEST RADIOGRAPHY EXAM DATE: 08/27/2017 01:42 AM. CLINICAL HISTORY: Decreased mental status. COMPARISON: 08/19/2017. TECHNIQUE: 1 view. FINDINGS: Lungs/Pleura: No alveolar consolidation or pleural effusion. No pneumothorax. Mild bronchial wall thi ckening. Mediastinum: Heart size is normal. Aortic atherosclerosis. Other: Right-sided Power[employer] with the tip in the lower SVC. Osteopenia. Degenerative joint disease in the right shoulder. IMPRESSION: 1. Mild bronchial wall thickening. This can be seen with bronchitis or reactive airways disease. 2. No acute abnormality seen. [facility] Referring Provider Line: [phone] SITE ID: [id number]
[2017-08-27 02:03] LABS: BILIRUBIN,URINE NEGATIVE (NEGATIVE)
[2017-08-27] MEDS ORDERED: ACETAMINOPHEN 325 MG TABLET PO STA (02:09)
[2017-08-27 02:10] LABS: UA w/ MICROSCOPIC CHARGE YES
[2017-08-27 02:11] LABS: UR CULTURE IF IND INDICATED
[2017-08-27] MEDS ORDERED: PROCHLORPERAZINE 10 MG/2 ML VIAL IVP PRN (02:35)
[2017-08-27] MEDS ORDERED: SODIUM CHLORIDE 0.9% 500 ML IV ONE ×2 (02:35→04:00)
[2017-08-27] MEDS ORDERED: ONDANSETRON 4 MG/2 ML VIAL IVP PRN (02:35)
[2017-08-27] MEDS ORDERED: PROMETHAZINE 25 MG/1 ML VIAL IM PRN (02:35)
[2017-08-27] MEDS ORDERED: VANCOMYCIN PER PHARMACY 1 GM in SODIUM CHLORIDE 0.9% 250 ML IV PRN (03:00)
[2017-08-27] MEDS ORDERED: PIPERACILLIN/TAZOBACTAM 3.375 GM in SODIUM CHLORIDE 0.9% MINIBAG 100 ML IV SCH (03:00)
[2017-08-27] MEDS ORDERED: VANCOMYCIN INJ 1 GM in SODIUM CHLORIDE 0.9% 250 ML IV STA (03:09)
[2017-08-27] MEDS ORDERED: PIPERACILLIN/TAZOBACTAM 3.375 GM in SODIUM CHLORIDE 0.9% MINIBAG 100 ML IV STA (03:09)
--- NOTE | 2017-08-27 03:33 | HISTORY & PHYSICAL EXAMINATION ---
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 The patient presents to the emergency department today with altered mental status. According to the patient's the patient was improved prior to discharge from the hospital and was doing well up until today. He states that today the patient was complaining of chills and feeling warm. The patient's checked her temperature and found it to be 101.5. The patient continued to have chills and the patient's was asking her simple questions such as her birthdate and the patient was unable to answer. As the night progressed the patient became increasingly confused and eventually was not answering questions at all. At that point the patient's became concerned and brought the patient to the emergency department. The patient was also appearing to be clammy and diaphoretic and was staring off not answering questions. The patient otherwise had no new cough and was not short of air. The patient continues to have chronic pain from her cancer which is mostly in the rib cage area. She otherwise denied any headaches, blurred vision, runny nose, sore throat, nasal congestion, orthopnea, PND, abdominal pain, nausea, vomiting, diarrhea, dysuria , increased urinary frequency, she does have swelling of her right leg from recent DVT. She denies any back pain or neck stiffness. She states that her appetite has been getting better recently. She denied any new focal neurologic deficits. On presentation to the emergency department the patient was febrile with a temperature of 39.5, tachycardic with a heart rate of 160, tachypneic with respiratory rate between 25 and 27 but she was not hypotensive and was saturating well on room air. The patient did not have a leukocytosis but she did have altered mentation, an elevated lactic acid of 3.1 and acute kidney injury with a creatinine of 1.5 up from a baseline of 0.8 just 5 days earlier. The patient appeared to be septic and chest x-ray was ordered which was negative for an acute process her urine however did show large occult blood, leukocyte Estrace with 6-10 WBCs and a few bacteria. This was concerning for a UTI that had not completely cleared. On her previous hospitalization she did grow out E. coli in her bloodstream. The patient was treated for bacteremia and her E. coli was susceptible to Levaquin which was what she was on at home. The patient however does not appear to have responded to her oral antibiotic or she developed a new infection. The patient was given IV fluid in the emergency department and started on broad-spectrum antibiotics. With the IV fluids the patient seemed to improve significantly and her altered mental status improved to where she was able to talk and answer questions although her processing was slow. Given the change in mental status the emergency room physician did perform a CT of the patient's head which showed chronic appearing postoperative changes in the right cerebellum but no definite acute intracranial process. The patient was [facility] the [facility] for treatment of sepsis likely secondary to UTI and dehydration. 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 Social History Notes: The patient is originally from [facility]. 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 The patient was very healthy and took very good care of herself prior to the cancer diagnosis. 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 She ate very healthy. She and her current have been together for 19 years and have been for the last 5 years. The patient has 1 biological daughter who lives near [place]. The patient and her were heavy drinkers for many years and did occasionally smoke when they would drink. The patient denies any illicit drug use. Currently the patient is taken care of by her at home. They live in [place]. - POLST Patient has POLST: Yes POLST Status: Full Code Meds/Allgy - Home Medications Home Medications: Ambulatory Orders Medication Instructions Recorded Confirmed Acetaminophen [Tylenol Extra 1,000 mg PO Q6H PRN 05/04/16 08/27/17 Strength] Dexamethasone 1 mg PO QDX4D 08/19/17 08/27/17 oxyCODONE [Roxicodone] 5 mg PO Q5H PRN 08/19/17 08/19/17 Levofloxacin [Levaquin] 500 mg PO DAILY #6 tablet 08/22/17 08/27/17 Rivaroxaban [Xarelto] 15 mg PO 0800,1700 #35 tablet 08/22/17 08/27/17 Rivaroxaban [Xarelto] 20 mg PO DAILY #30 tablet 08/22/17 08/27/17 Pantoprazole [Protonix] 1 tab PO DAILY 08/27/17 08/27/17 Thiamine HCl [Vitamin B-1] 100 mg PO DAILY 08/27/17 08/27/17 - Allergies Allergies/Adverse Reactions: Allergies Allergy/AdvReac Type Severity Reaction Status Date / Time hydrocodone Allergy Unknown Emesis Verified 08/27/17 02:54 Review of Systems - Other Findings Other Findings: A comprehensive review of systems was performed the pertinent positives and negatives are stated above in the HPI and the remainder of the review of systems is negative. Exam - Vital Signs Reviewed Vital Signs: Yes Vital Signs: Vital Signs x48h Temp Pulse Resp BP Pulse Ox 08/27/17 02:55 113 H 20 117/67 94 08/27/17 02:35 113 H 14 109/59 L 94 08/27/17 02:28 113 H 12 117/60 94 08/27/17 02:15 118 H 16 112/57 L 93 08/27/17 01:57 121 H 26 H 123/67 94 08/27/17 01:44 39.5 C H 121 H 27 H 123/58 L 92 08/27/17 01:22 126 H 19 123/66 97 08/27/17 00:36 37.7 C H 162 H 25 H 176/98 H 98 - Physical Exam General Appearance: positive: Other (Slow to answer questions, diaphoretic, clammy, alopecia, grimes face, buffalo hump, central obesity.) Eyes Bilateral: positive: Normal inspection, PERRL, EOMI, No lid inflammation, Conjunctivae nml, No scleral icterus ENT: positive: ENT inspection nml, Pharynx nml, Dry mucous membranes. negative : Purulent nasal drainage, Pharyngeal erythema, Oral lesions Neck: positive: Nml inspection, Thyroid nml, No JVD, Trachea midline, Lymphadenopathy (L) (Suprclavicular and cervical). negative: Thyromegaly, Stiff neck, Carotid bruit, Tracheal deviation Respiratory: positive: Chest non-tender, No respiratory distress, Breath sounds nml. negative: Wheezes, Rales, Rhonchi Cardiovascular: positive: No murmur, No gallop, Tachycardia Peripheral Pulses: positive: 2+ Abdomen: positive: Non-tender, No organomegaly, Nml bowel sounds, Other (Hernia) Back: positive: Nml inspection. negative: CVA tenderness (R), CVA tenderness (L ) Skin: positive: No rash, Warm, Diaphoresis. negative: Pallor Extremities: positive: Non-tender, Full ROM, Other (Right lower extremity swollen compared to the left) Neurologic/Psychiatric: positive: CN's nml (2-12), Motor nml, Sensation nml, Disoriented to time, Slurred/abnml speech (Slowed speech) Conclusion/Plan - Problem List (1) Sepsis Conclusion/Plan: Patient presented with fever 39.5, tachycardia 162, tachypnea respiratory rate of 25-27, elevated lactic acid 3.1, acute kidney injury creatinine up to 1.5 from baseline 0.8 and altered mental status. Patient appeared to have severe sepsis on presentation but blood pressure was stable. Source of sepsis appears likely to be a urinary tract infection however would not be surprising if the patient has persistent bacteremia. Patient recently discharged from the hospital after hospitalization with E. coli bacteremia from urinary source. Patient was discharged on p.o. Levaquin but 4 days later began developing fever chills and altered mental status at home. Plan: Place patient on broad-spectrum IV antibiotics with vancomycin and Zosyn Blood cultures drawn and pending Give fluid resuscitation with IV fluid bolus and maintenance fluid Tylenol for fever Await urine culture Monitor closely on telemetry and monitor for hypotension (2) Urinary tract infection Conclusion/Plan: Likely source of patient's sepsis is UTI. The patient had presented 1 week earlier with UTI and had E. coli bacteremia. The patient was treated with p.o. Levaquin to which E. coli was sensitive. It appears the patient has failed p.o. antibiotic therapy. She has presented today with sepsis and has positive UA. Plan: Patient will be given broad-spectrum IV antibiotics with vancomycin and Zosyn Blood cultures pending Urine cultures pending Give IV fluid Given acute kidney injury in setting of sepsis with UTI we will get a retroperitoneal ultrasound to rule out fluid collection or abscess Qualifiers: Urinary tract infection type: acute cystitis Hematuria presence: without hematuria Qualified Code(s): N30.00 - Acute cystitis without hematuria (3) LAURA (acute kidney injury) Conclusion/Plan: Patient presented with sepsis and has acute kidney injury with a creatinine of 1.5 from baseline of 0.8 just 5 days earlier. The patient appears significantly dehydrated and is clammy and diaphoretic. The patient likely has acute kidney injury secondary to sepsis and dehydration. Plan: Give IV fluids Monitor creatinine Retroperitoneal ultrasound to rule out obstruction or renal abscess (4) Hyponatremia Conclusion/Plan: Patient presents with sodium of 131. This appears to be hypovolemic hyponatremia likely secondary to sepsis and dehydration. Plan: Give IV fluids Monitor sodium (5) Right leg DVT Conclusion/Plan: Patient was found to have a right leg DVT in the common femoral and superficial femoral veins. The patient still has swelling of her right leg. She is on Xarelto at home. Plan: We will continue patient's home dose of Xarelto while she is hospitalized. 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 Patient is status post craniotomy and chemoradiation. Given the patient's altered mental status on presentation CT head was ordered but does not show any new lesions or mass-effect. The patient's mental status was improving in the emergency department with IV fluids and antibiotics and it is presumed that mental status changes likely secondary to sepsis. Plan: Patient will follow up as an outpatient for brain MRI and further management by oncology. We will continue to manage patient's pain from her cancer with oral oxycodone and IV Dilaudid as needed - Lab Results Lab results reviewed: Yes Fish Bones: 08/27/17 00:50 08/27/17 00:50 Other Lab Results: Laboratory Results WBC 5.0 x10^3/uL (4.8-10.8) 08/27/17 00:50 RBC 3.84 10^6/uL (4.20-5.40) L 08/27/17 00:50 Hgb 11.9 g/dL (12.0-16.0) L 08/27/17 00:50 Hct 34.9 % (37.0-47.0) L 08/27/17 00:50 MCV 90.9 fL (81.0-99.0) 08/27/17 00:50 MCH 31.0 pg (27.0-31.0) 08/27/17 00:50 MCHC 34.1 g/dL (32.0-36.0) 08/27/17 00:50 RDW 16.6 % (12.0-15.0) H 08/27/17 00:50 Plt Count 177 10^3/uL (130-450) 08/27/17 00:50 MPV 7.6 fL (7.9-10.8) L 08/27/17 00:50 Neut # 3.5 10^3/uL (1.5-6.6) 08/27/17 00:50 Lymph # 1.4 10^3/uL (1.5-3.5) L 08/27/17 00:50 [place]ster # 0.0 10^3/uL (0.0-1.0) 08/27/17 00:50 Eos # 0.0 10^3/uL (0.0-0.7) 08/27/17 00:50 Baso # 0.0 10^3/uL (0.0-0.1) 08/27/17 00:50 Absolute Nucleated RBC 0.02 x10^3/uL 08/27/17 00:50 Nucleated RBC % 0.4 /100WBC 08/27/17 00:50 PT 25.3 secs (9.9-12.6) H 08/27/17 00:50 INR 2.3 (0.8-1.2) H 08/27/17 00:50 APTT 57.8 secs (24.9-33.3) H 08/27/17 00:50 Sodium 131 mmol/L (135-145) L 08/27/17 00:50 Potassium 4.2 mmol/L (3.5-5.0) 08/27/17 00:50 Chloride 98 mmol/L (101-111) L 08/27/17 00:50 Carbon Dioxide 19 mmol/L (21-32) L 08/27/17 00:50 Anion Gap 14.0 (6-13) H 08/27/17 00:50 BUN 28 mg/dL (6-20) H 08/27/17 00:50 Creatinine 1.5 mg/dL (0.4-1.0) H 08/27/17 00:50 Estimated GFR (MDRD) 35 (>89) L 08/27/17 00:50 Glucose 89 mg/dL (70-100) 08/27/17 00:50 Lactic Acid 3.1 mmol/L (0.5-2.2) H* 08/27/17 00:50 Calcium 8.3 mg/dL (8.5-10.3) L 08/27/17 00:50 Total Bilirubin 0.5 mg/dL (0.2-1.0) 08/27/17 00:50 AST 26 IU/L (10-42) 08/27/17 00:50 ALT 17 IU/L (10-60) 08/27/17 00:50 Alkaline Phosphatase 106 IU/L (42-121) 08/27/17 00:50 Troponin I < 0.04 ng/mL (<0.49) 08/27/17 00:50 Total Protein 6.6 g/dL (6.7-8.2) L 08/27/17 00:50 Albumin 2.5 g/dL (3.2-5.5) L 08/27/17 00:50 Globulin 4.1 g/dL (2.1-4.2) 08/27/17 00:50 Albumin/Globulin Ratio 0.6 (1.0-2.2) L 08/27/17 00:50 Lipase 23 U/L (22-51) 08/27/17 00:50 Urine Color YELLOW 08/27/17 01:50 Urine Clarity HAZY (CLEAR) 08/27/17 01:50 Urine pH 6.0 PH (5.0-7.5) 08/27/17 01:50 Ur Specific [place] 1.015 (1.002-1.030) 08/27/17 01:50 Urine Protein 100 mg/dL (NEGATIVE) H 08/27/17 01:50 Urine Glucose (UA) NEGATIVE mg/dL (NEGATIVE) 08/27/17 01:50 Urine Ketones NEGATIVE mg/dL (NEGATIVE) 08/27/17 01:50 Urine Occult Blood LARGE (NEGATIVE) H 08/27/17 01:50 Urine Nitrite NEGATIVE (NEGATIVE) 08/27/17 01:50 Urine Bilirubin NEGATIVE (NEGATIVE) 08/27/17 01:50 Urine Urobilinogen 0.2 (NORMAL) E.U./dL (NORMAL) 08/27/17 01:50 Ur Leukocyte Esterase TRACE (NEGATIVE) H 08/27/17 01:50 Urine RBC TNTC /HPF (0-5) H 08/27/17 01:50 Urine WBC 6-10 /HPF (0-5) H 08/27/17 01:50 Ur Squamous Epith Cells RARE Squamous (<= Few) 08/27/17 01:50 Urine Bacteria Few /HPF (None Seen) 08/27/17 01:50 Ur Microscopic Review INDICATED 08/27/17 01:50 Urine Culture Comments INDICATED 08/27/17 01:50 Influenza A (Rapid) Negative (Negative) 08/27/17 02:10 Influenza B (Rapid) Negative (Negative) 08/27/17 02:10 Influenza Types A,B Ag - 08/27/17 02:10 - Diagnostic Imaging Results Diagnostic Imaging Results: positive: Final report reviewed Diagnostic Imaging Results Comments: CT head Impression: 1. Chronic appearing postoperative changes in the right cerebellum 2. No definite acute intracranial process identified Chest x-ray Impression: 1. Mild bronchial wall thickening. This can be seen with bronchitis or reactive airway disease. 2. No acute abnormality seen. Issues/Core Measures - Anticipated LOS Anticipated Stay Length: 2 or more midnights - DVT/VTE - Prophylaxis VTE/DVT Prophylaxis med ordered at admit?: Yes
[2017-08-27] MEDS ORDERED: SODIUM CHLORIDE 0.9% 1,000 ML IV ONE (05:24)
[2017-08-27] MEDS ORDERED: DEXTROSE 5% 250 ML IV ONE (06:03)
[2017-08-27] MEDS: SODIUM CHLORIDE FLUSH 0.9% 10 ML SYRINGE IVP SCH ×3 (06:27→20:35)
[2017-08-27 06:44] LABS: BASOPHILS % (AUTO) 0.1 %; EOSINOPHILS % (AUTO) 0.2 %; HCT - HEMATOCRIT 27.7 % (37.0-47.0); HGB - HEMOGLOBIN 9.3 g/dL (12.0-16.0); LYMPHOCYTES # (AUTO) 0.9 10^3/uL (1.5-3.5); LYMPHOCYTES % (AUTO) 8.1 %; MEAN CORPUSCULAR HEMOGLOBIN 30.6 pg (27.0-31.0); MEAN CORPUSCULAR HGB CONC 33.6 g/dL (32.0-36.0); MEAN CORPUSCULAR VOLUME 91.1 fL (81.0-99.0); MEAN PLATELET VOLUME 7.6 fL (7.9-10.8); MONOCYTES # (AUTO) 0.3 10^3/uL (0.0-1.0); MONOCYTES % (AUTO) 2.2 %; NEUTROPHILS # (AUTO) 10.1 10^3/uL (1.5-6.6); NEUTROPHILS % (AUTO) 89.4 %; RED BLOOD COUNT 3.05 10^6/uL (4.20-5.40); RED CELL DISTRIBUTION WIDTH 17.1 % (12.0-15.0); UNCORRECTED WHITE BLOOD COUNT 11.3 x10^3/uL; WHITE BLOOD COUNT 11.3 x10^3/uL (4.8-10.8)
[2017-08-27] MEDS: HYDROCORTISONE SUCCINATE 100 MG/2 ML VIAL IVP SCH ×3 (06:52→17:29)
[2017-08-27] MEDS: PANTOPRAZOLE 40 MG VIAL IVP SCH (06:52)
[2017-08-27] MEDS: SODIUM CHLORIDE 0.9% 1,000 ML IV SCH ×4 (06:53→22:40)
[2017-08-27] MEDS ORDERED: PANTOPRAZOLE 40 MG TABLET PO SCH (07:00)
[2017-08-27] MEDS ORDERED: THIAMINE HCL 100 MG PO SCH (09:00)
[2017-08-27] MEDS ORDERED: DEXAMETHASONE 1 MG TABLET PO SCH (09:00)
[2017-08-27] MEDS: oxyCODONE 5 MG TABLET PO PRN ×4 (09:13→22:53)
[2017-08-27] MEDS: THIAMINE 100 MG TABLET PO SCH (09:13)
[2017-08-27] MEDS: RIVAROXABAN 15 MG TABLET PO SCH (09:13)
[2017-08-27] MEDS: SACCHAROMYCES BOULARDII 250 MG CAPSULE PO SCH ×2 (09:14→17:28)
[2017-08-27] MEDS: ACETAMINOPHEN 325 MG TABLET PO PRN ×3 (09:14→16:33)
[2017-08-27 09:18] LABS: MAGNESIUM 1.5 mg/dL (1.7-2.8); PHOSPHORUS 4.8 mg/dL (2.5-4.6)
[2017-08-27] MEDS: PIPERACILLIN/TAZOBACTAM 2.25 GM in SODIUM CHLORIDE 0.9% MINIBAG 100 ML IV SCH ×3 (09:26→20:35)
--- NOTE | 2017-08-27 09:31 | Ultrasound Preliminary Report ---
Exam: US RETROPERITONEAL IMPRESSION: 1. Moderate bilateral hydronephrosis of uncertain etiology. 2. Ureteral jets are not seen. Apparent mild bladder wall thickening may reflect cystitis. 3. Mildly echogenic kidneys may reflect medical renal disease. [facility] SITE ID: [id number]
[2017-08-27] MEDS: POLYETHYLENE GLYCOL 3350 17 GM PACKET PO SCH (09:32)
--- NOTE | 2017-08-27 09:33 | Ultrasound Report ---
EXAM: RENAL ULTRASOUND EXAM DATE: 08/27/2017 08:39 AM. CLINICAL HISTORY: LAURA and sepsis look for obstruction or abscess. COMPARISON: None. TECHNIQUE: Real-time scanning was performed with static images obtained. FINDINGS: Right Kidney: 12.1 cm. Mildly echogenic. Moderate hydronephrosis. No contour deforming mass. No calcu li. Left Kidney: 11.7 cm. Mildly echogenic. Moderate hydronephrosis. No contour deforming mass. No calcul i. Bladder: Bilateral jets not seen. The prevoid bladder volume was 279 cc. The postvoid bladder volume was not assessed due to the patient's clinical condition. Apparent mild bladder wall thickening may r eflect cystitis. IMPRESSION: 1. Moderate bilateral hydronephrosis of uncertain etiology. 2. Ureteral jets are not seen. Apparent mild bladder wall thickening may reflect cystitis. 3. Mildly echogenic kidneys may reflect medical renal disease. [facility] Referring Provider Line: [phone] SITE ID: [id number]
[2017-08-27] MEDS: MAGNESIUM OXIDE 400 MG TABLET PO SCH ×2 (11:58→17:29)
--- NOTE | 2017-08-27 16:24 | PROVIDER PROGRESS NOTE ---
Subjective - Prog Note Date Prog Note Date: 08/27/17 Prog Note Time: 16:22 - Subjective Pt reports feeling: Improved Subjective: She is awake. Waving her left hand around as she holds a drinking glass in it. Spirited conversation about her wishes for the future. She plans on leaving for September 10 for follow-up [employer] and Onc appointment. She was asking for a physical therapy evaluation and treatment. She is supremely satisfied with her nursing care here and called K[facility] by name for how great care she is getting. She really likes the Shari lift chair were using to help her. 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 Current Medications - Current Medications Current Medications: Active Medications Acetaminophen (Tylenol) 650 mg PO Q4HR PRN PRN Reason: Pain 1 to 4 Last Admin: 08/27/17 12:49 Dose: 650 mg Hydrocortisone Sodium Succinate (Solu-Cortef) 50 mg IVP Q6HR BAL Last Admin: 08/27/17 11:57 Dose: 50 mg Sodium Chloride (Normal Saline 0.9%) 1,000 mls @ 150 mls/hr IV .Q6H40M BAL Last Infusion: 08/27/17 15:10 Dose: 150 mls/hr Piperacillin Sod/Tazobactam (Sod 2.25 gm/ Sodium Chloride) 100 mls @ 200 mls/ hr IV Q6H BAL Last Infusion: 08/27/17 15:10 Dose: Infused Vancomycin HCl 1.25 gm/ (Dextrose) 250 mls @ 167 mls/hr IV Q36H BLA Norepinephrine Bitartrate 8 mg (/ Dextrose) 250 mls @ 15 mls/hr IV .[id number] BAL ; 8 MCG/MIN PRN Reason: Protocol Last Titration: 08/27/17 09:21 Dose: 0 mcg/min, 0 mls/hr Magnesium Oxide (Mag Ox) 400 mg PO Q6H BAL PRN Reason: Protocol Stop: 08/27/17 18:01 Last Admin: 08/27/17 11:58 Dose: 400 mg Morphine Sulfate (Morphine) 2 mg IVP Q2H PRN PRN Reason: Pain 8 to 10 Ondansetron HCl (Zofran Inj) 4 mg IVP Q6HR PRN PRN Reason: Nausea / Vomiting Oxycodone HCl (Roxicodone) 5 mg PO Q4HR PRN PRN Reason: Pain 5 to 7 Last Admin: 08/27/17 12:49 Dose: 5 mg Oxycodone HCl (Roxicodone) 10 mg PO Q4HR PRN PRN Reason: Pain 8 to 10 Pantoprazole Sodium (Protonix) 40 mg IVP QDAC [facility] Last Admin: 08/27/17 06:52 Dose: 40 mg Polyethylene Glycol (Miralax) 17 gm PO DAILY [facility] Last Admin: 08/27/17 09:32 Dose: 17 gm Prochlorperazine Edisylate (Compazine Inj) 10 mg IVP Q6HR PRN PRN Reason: Nausea / Vomiting Promethazine HCl (Phenergan Inj) 25 mg IM Q6HR PRN PRN Reason: Nausea / Vomiting Rivaroxaban (Xarelto) 15 mg PO DAILY [facility] Last Admin: 08/27/17 09:13 Dose: 15 mg Saccharomyces Boulardii (Florastor) 250 mg PO BIDWM [facility] Last Admin: 08/27/17 09:14 Dose: 250 mg Sodium Chloride (Normal Saline Flush 0.9%) 10 ml IVP PRN PRN PRN Reason: NEEDED PER PROVIDER ORDERS Sodium Chloride (Normal Saline Flush 0.9%) 10 ml IVP Q8HR [facility] Last Admin: 08/27/17 14:14 Dose: Not Given Thiamine HCl (Vitamin B-1) 100 mg PO DAILY [facility] Last Admin: 08/27/17 09:13 Dose: 100 mg Acetaminophen [Tylenol Extra Strength] 1,000 mg PO Q6H PRN 05/04/16 oxyCODONE [Roxicodone] 5 mg PO Q5H PRN 08/19/17 Pantoprazole [Protonix] 40 mg PO DAILY 08/27/17 Thiamine HCl [Vitamin B-1] 100 mg PO DAILY 08/27/17 Objective - Vital Signs/Intake & Output Reviewed Vital Signs: Yes Vital Signs: Vital Signs x48h Temp Pulse Resp BP Pulse Ox 08/27/17 16:00 79 19 112/74 99 08/27/17 15:00 80 21 124/70 98 08/27/17 14:00 81 12 116/70 98 08/27/17 13:00 36.5 C 80 16 134/73 H 96 08/27/17 12:00 82 19 107/60 95 08/27/17 11:00 74 12 109/63 96 08/27/17 10:00 80 19 104/61 98 08/27/17 09:00 80 14 126/78 96 Intake & Output: Intake & Output 08/24/17 08/25/17 08/26/17 08/27/17 23:59 23:59 23:59 23:59 Intake Total 4617.251 Balance 4617.251 - Objective General Appearance: positive: Alert, Other (Alopecia, wearing a great [employer] hat. Glasses. No acute distress) Eyes Bilateral: positive: PERRL ENT: positive: Dry mucous membranes, Other (Right facial droop. She can blink her eyes much she blinks her left eye so she may need some eyedrops there.) Neck: positive: No JVD. negative: Stiff neck, Carotid bruit Respiratory: positive: Chest non-tender. negative: Wheezes, Rales, Rhonchi Cardiovascular: positive: Regular rate & rhythm. negative: Gallop/S4, Friction rub Abdomen: positive: Non-tender, No organomegaly, Nml bowel sounds, No distention Extremities: positive: Other (Right leg is extended, propped up on a pillow. The edema of her right calf is less than it was last week when I saw her.) Neurologic/Psychiatric: positive: Oriented x3. negative: CN's nml (2-12) ( Right facial droop), Motor nml (Right body weaker than left) - Lab Results Fish Bones: 08/27/17 06:29 08/27/17 00:50 Other Labs: Lab Results x24hrs 08/27/17 08/27/17 08/27/17 Range/Units 08:56 06:29 06:29 WBC (4.8-10.8) x10^3/uL RBC (4.20-5.40) 10^6/uL Hgb (12.0-16.0) g/dL Hct (37.0-47.0) % MCV (81.0-99.0) fL MCH (27.0-31.0) pg MCHC (32.0-36.0) g/dL RDW (12.0-15.0) % Plt Count (130-450) 10^3/uL MPV (7.9-10.8) fL Neut # (1.5-6.6) 10^3/uL Lymph # (1.5-3.5) 10^3/uL Simpson # (0.0-1.0) 10^3/uL Eos # (0.0-0.7) 10^3/uL Baso # (0.0-0.1) 10^3/uL Absolute Nucleated RBC x10^3/uL Nucleated RBC % /100WBC ESR (0-30) mm/Hr Lactic Acid 0.9 (0.5-2.2) mmol/L Phosphorus 4.8 H (2.5-4.6) mg/dL Magnesium 1.5 L (1.7-2.8) mg/dL C-Reactive Protein 24.9 H (0-1.0) mg/dL Albumin 2.4 L (3.2-5.5) g/dL 08/27/17 08/27/17 08/27/17 Range/Units 06:29 06:29 06:29 WBC 11.3 H (4.8-10.8) x10^3/uL RBC 3.05 L (4.20-5.40) 10^6/uL Hgb 9.3 L (12.0-16.0) g/dL Hct 27.7 L (37.0-47.0) % MCV 91.1 (81.0-99.0) fL MCH 30.6 (27.0-31.0) pg MCHC 33.6 (32.0-36.0) g/dL RDW 17.1 H (12.0-15.0) % Plt Count 129 L (130-450) 10^3/uL MPV 7.6 L (7.9-10.8) fL Neut # 10.1 H (1.5-6.6) 10^3/uL Lymph # 0.9 L (1.5-3.5) 10^3/uL Simpson # 0.3 (0.0-1.0) 10^3/uL Eos # 0.0 (0.0-0.7) 10^3/uL Baso # 0.0 (0.0-0.1) 10^3/uL Absolute Nucleated RBC 0.01 x10^3/uL Nucleated RBC % 0.0 /100WBC ESR 93 H (0-30) mm/Hr Lactic Acid 0.9 (0.5-2.2) mmol/L Phosphorus (2.5-4.6) mg/dL Magnesium (1.7-2.8) mg/dL C-Reactive Protein (0-1.0) mg/dL Albumin (3.2-5.5) g/dL Assessment/Plan - Problem List (1) Sepsis Impression: Patient presented with fever 39.5, tachycardia 162, tachypnea respiratory rate of 25-27, elevated lactic acid 3.1, acute kidney injury creatinine up to 1.5 from baseline 0.8 and altered mental status. Patient appeared to have severe sepsis on presentation but blood pressure was stable. Source of sepsis appears likely to be a urinary tract infection however would not be surprising if the patient has persistent bacteremia. Patient recently discharged from the hospital after hospitalization with E. coli bacteremia from urinary source. Patient was discharged on p.o. Levaquin but 4 days later began developing fever chills and altered mental status at home. She was transferred to ICU and put on levophed when BP did not come up. A few hours later she is off levophed. Awake, alert. Eating. Watch [employer] game. Plan: Place patient on broad-spectrum IV antibiotics with vancomycin and Zosyn Blood cultures drawn and pending Give fluid resuscitation with IV fluid bolus and maintenance fluid Tylenol for fever Await urine culture Monitor closely on telemetry and monitor for further hypotension (2) Urinary tract infection Conclusion/Plan: Likely source of patient's sepsis is UTI. The patient had presented 1 week earlier with UTI and had E. coli bacteremia. The patient was treated with p.o. Levaquin to which E. coli was sensitive. It appears the patient has failed p.o. antibiotic therapy. She has presented today with sepsis and has positive UA. the retroperitoneal US shows bilateral moderate hydronephrosis Plan: Patient will be given broad-spectrum IV antibiotics with vancomycin and Zosyn, Day #1 Blood cultures pending Urine cultures pending Give IV fluid Qualifiers: Urinary tract infection type: acute cystitis Hematuria presence: without hematuria Qualified Code(s): N30.00 - Acute cystitis without hematuria (3) LAURA (acute kidney injury) Conclusion/Plan: Patient presented with sepsis and has acute kidney injury with a creatinine of 1.5 from baseline of 0.8 just 5 days earlier. The patient appears significantly dehydrated and is clammy and diaphoretic. The patient likely has acute kidney injury secondary to sepsis and dehydration. Unfortunately, the retroperitoneal US shows bilateral moderate hydronephrosis. Obstruction source not clear. No ureteral jets. Bladder wall a little thick with cystitis. Will check CT abd and pelvis with delayed venous phase tomorrow. I would like her creatinine to improve. There was not done in the morning. Plan: Give IV fluids Monitor creatinine/GFR until latter closer to 45 In am check GFR and if >[address] abd and pelvis with delayed venous phase to see if nodes or masses causing the hydro (4) Hyponatremia Conclusion/Plan: Patient presents with sodium of 131. This appears to be hypovolemic hyponatremia likely secondary to sepsis and dehydration. Plan: Give IV fluids Monitor sodium. Review this mornings draw since not run. I've called the lab for an add on. (5) Right leg DVT Conclusion/Plan: Patient was found to have a right leg DVT in the common femoral and superficial femoral veins. The patient still has swelling of her right leg. She is on Xarelto at home. Plan: We will continue patient's home dose of Xarelto while she is hospitalized. 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 Patient is status post craniotomy and chemoradiation. Given the patient's altered mental status on presentation CT head was ordered but does not show any new lesions or mass-effect. The patient's mental status was improving in the emergency department with IV fluids and antibiotics and it is presumed that mental status changes likely secondary to sepsis. Plan: Patient will follow up as an outpatient for brain MRI and further management by oncology. She plans a trip on September 10 to [place]. We will continue to manage patient's pain from her cancer with oral oxycodone and IV Dilaudid as needed
[2017-08-27 17:11] LABS: ALBUMIN/GLOBULIN RATIO 0.6 (1.0-2.2); BILIRUBIN,TOTAL 0.3 mg/dL (0.2-1.0); CALCIUM 8.6 mg/dL (8.5-10.3); CREATININE 1.6 mg/dL (0.4-1.0); POTASSIUM 4.5 mmol/L (3.5-5.0); TOTAL PROTEIN 6.7 g/dL (6.7-8.2)
[2017-08-28] MEDS: HYDROCORTISONE SUCCINATE 100 MG/2 ML VIAL IVP SCH ×4 (00:27→17:22)
[2017-08-28] MEDS: ACETAMINOPHEN 325 MG TABLET PO PRN ×3 (01:30→20:29)
[2017-08-28] MEDS: PIPERACILLIN/TAZOBACTAM 2.25 GM in SODIUM CHLORIDE 0.9% MINIBAG 100 ML IV SCH ×2 (03:07→08:50)
[2017-08-28] MEDS: SODIUM CHLORIDE 0.9% 1,000 ML IV SCH ×3 (05:55→20:12)
[2017-08-28] MEDS: SODIUM CHLORIDE FLUSH 0.9% 10 ML SYRINGE IVP SCH ×3 (05:55→20:12)
[2017-08-28 06:01] LABS: BASOPHILS % (AUTO) 0.1 %; EOSINOPHILS % (AUTO) 0.1 %; HCT - HEMATOCRIT 26.9 % (37.0-47.0); HGB - HEMOGLOBIN 8.9 g/dL (12.0-16.0); LYMPHOCYTES # (AUTO) 0.9 10^3/uL (1.5-3.5); LYMPHOCYTES % (AUTO) 7.8 %; MEAN CORPUSCULAR HEMOGLOBIN 30.4 pg (27.0-31.0); MEAN CORPUSCULAR HGB CONC 33.2 g/dL (32.0-36.0); MEAN CORPUSCULAR VOLUME 91.6 fL (81.0-99.0); MEAN PLATELET VOLUME 7.9 fL (7.9-10.8); MONOCYTES # (AUTO) 0.2 10^3/uL (0.0-1.0); MONOCYTES % (AUTO) 2.2 %; NEUTROPHILS % (AUTO) 89.8 %; RED BLOOD COUNT 2.94 10^6/uL (4.20-5.40); RED CELL DISTRIBUTION WIDTH 16.9 % (12.0-15.0); UNCORRECTED WHITE BLOOD COUNT 11.1 x10^3/uL; WHITE BLOOD COUNT 11.1 x10^3/uL (4.8-10.8)
[2017-08-28 06:02] LABS: INR 2.3 (0.8-1.2); PT - PROTHROMBIN TIME 25.1 secs (9.9-12.6)
[2017-08-28 06:11] LABS: ALBUMIN/GLOBULIN RATIO 0.5 (1.0-2.2); BILIRUBIN,TOTAL 0.2 mg/dL (0.2-1.0); CALCIUM 7.8 mg/dL (8.5-10.3); MAGNESIUM 1.6 mg/dL (1.7-2.8); PHOSPHORUS 3.5 mg/dL (2.5-4.6); POTASSIUM 3.4 mmol/L (3.5-5.0); TOTAL PROTEIN 5.4 g/dL (6.7-8.2)
[2017-08-28] MEDS: PANTOPRAZOLE 40 MG VIAL IVP SCH (06:35)
[2017-08-28] MEDS: MAGNESIUM OXIDE 400 MG TABLET PO SCH ×2 (06:37→13:43)
[2017-08-28] MEDS ORDERED: POTASSIUM CHLORIDE 20 MEQ TABLET PO ONE (07:00)
[2017-08-28] MEDS: RIVAROXABAN 15 MG TABLET PO SCH (08:46)
[2017-08-28] MEDS: SACCHAROMYCES BOULARDII 250 MG CAPSULE PO SCH ×2 (08:47→17:31)
[2017-08-28] MEDS: THIAMINE 100 MG TABLET PO SCH (08:48)
[2017-08-28] MEDS: POLYETHYLENE GLYCOL 3350 17 GM PACKET PO SCH (08:52)
[2017-08-28] MEDS: oxyCODONE 5 MG TABLET PO PRN ×3 (09:44→20:12)
[2017-08-28] MEDS ORDERED: IOPAMIDOL-300 100 ML VIAL ONE (11:56)
[2017-08-28] MEDS ORDERED: IOPAMIDOL-300 50 ML VIAL PO ONE (12:16)
[2017-08-28] MEDS ORDERED: IOPAMIDOL-300 100 ML VIAL IVP ONE (14:10)
[2017-08-28] MEDS: CIPROFLOXACIN 400 MG/200 ML 200 ML IV SCH (14:18)
--- NOTE | 2017-08-28 14:50 | CT Report ---
EXAM: CT ABDOMEN AND PELVIS EXAM DATE: 08/28/2017 01:11 PM. CLINICAL HISTORY: Bilat hydronephrosis mass, nodes(Hx [employer] cancer). COMPARISONS: None. TECHNIQUE: Routine helical CT imaging was performed through the abdomen and pelvis. IV contrast: 100M L OF ISOVUE 300. Enteric contrast: Yes. Reconstructions: Coronal and sagittal. In accordance with CT protocol optimization, one or more of the following dose reduction techniques w ere utilized for this exam: automated exposure control, adjustment of mA and/or KV based on patient s ize, or use of iterative reconstructive technique. FINDINGS: Lung Bases: There are multiple scattered bilateral lower lobe pulmonary nodules. There are more than 20 nodules in the lung bases. One of the larger nodules in the posterior right lower lobe measures 11 mm on image 12. There are very small bilateral pleural effusions. There is septal thickening. There is right hilar lymphadenopathy. There is subcarinal lymphadenopathy. Liver: There is a subtle hypodense segment 8 7 mm low-density liver lesion on series 3 image 18. Ther e is a 5 mm segment 7 lesion image 20 based lesions are too small to characterize. Gallbladder/Bile Ducts: Unremarkable. Spleen: Normal. Pancreas: Normal. Adrenal Glands: Normal. Kidneys: There is moderate right hydronephrosis and hydroureter. There is moderate left hydronephrosi s. No visible obstructing ureter stones. Peritoneal Cavity/Bowel: No dilated bowel or features of mechanical bowel obstruction. There is scatt ered stool in the colon. In the upper abdomen, there is retroperitoneal lymphadenopathy. There are le ft periaortic lymph nodes measuring 33 x 23 mm on image 37. There is an enlarged upper abdominal hollie rohepatic lymph node measuring 31 x 21 mm on image 25. There is an enlarged central mesenteric lymph node measuring 14 x 13 mm on image 58. There is a right external iliac chain enlarged node measuring 67 x 27 mm image 72. There are enlarged bilateral inguinal lymph nodes. There is a mass posterior to the left psoas muscle in the pelvis measuring 24 x 19 mm image 54. Pelvic Organs: The uterus appears abnormal. There is a heterogeneous multi-lobulated contour to the u terus. The endometrial canal appears dilated and contains gas. There is absence of a normal fat plane between the anterior uterus in the posterior bladder wall. There is soft tissue thickening along the posterior wall of the bladder measuring up to 15 mm in thickness. Normal-appearing ovaries are not s een. Vasculature: There is atherosclerotic vascular calcification without an aneurysm. Bones: No significant abnormality. Other: There is diffuse subcutaneous edema. IMPRESSION: 1. Retroperitoneal, pelvic, inguinal and mesenteric lymphadenopathy suspicious for metastatic disease or lymphoma. 2. Bilateral pulmonary nodules suspicious for pulmonary metastases. 3. Moderate bilateral hydronephrosis without obstructing stone. Likely secondary to pelvic malignancy or fibrosis 4. Abnormal appearance of uterus which appears nodular and contiguous with a thickened posterior blad cynthia wall, suspicious for neoplasm with bladder invasion. 5. Very small bilateral pleural effusions. 6. Tiny nonspecific liver hypodense lesions. Too small to characterize. These could be metastatic foc i or incidental benign lesions. [facility] Referring Provider Line: [phone] SITE ID: [id number]
--- NOTE | 2017-08-28 17:10 | PROVIDER PROGRESS NOTE ---
Assessment/Plan - Problem List (1) Septic shock Assessment/Plan: No further hypotension, Levophed off Continue iv antibiotics Decrease rate of iv hydration. Pt will be transferred out of ICU to [facility] bed. (2) Urinary tract infection Qualifiers: Urinary tract infection type: acute cystitis Hematuria presence: without hematuria Qualified Code(s): N30.00 - Acute cystitis without hematuria Assessment/Plan: U/A appeared to have a partially treated infection, at presentation. Urine culture results still pending. Will transition to Cipro iv, since the E coli on last admission was sensitive to that, and use iv Cipro here, before she is transferred to SNF for iv antibiotics. Reason for UTI is being W/U with CT abd and pelvis (see below) (3) Hydronephrosis Assessment/Plan: This was seen on retroperitoneal US. CT ordered to evaluate for obstructing mass (see below). 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 Pt still able to make urine. Urostomy to be considered. Will reach out to her Oncologist re: this finding a no old imaging studies are available here for comparison. (5) Lymphadenopathy Assessment/Plan: Extensive lymphadenopathy was seen on abd and pelvis CT: para-aortic, mesenteric , retroperitoneal, pelvic, inguinal as well as pulmonary nodules and small pleural effusion (suggesting metastasis to lungs as well). This will also be discussed with her Oncologist. (6) LUARA (acute kidney injury) Assessment/Plan: Improving and now normal creat, on iv fluids. Continue to monitor. (7) Right leg DVT Assessment/Plan: Continue anticoagulation, as prior to this admission. (8) Metastatic cancer to brain Assessment/Plan: Pt's altered mental status has returned to baseline, suggesting that it was te sptic shock causing AMS. - Current Meds Current Meds: Current Medications Generic Name Dose Route Start Last Admin Trade Name Freq PRN Reason Stop Dose Admin Acetaminophen 650 mg 08/27/17 02:35 08/28/17 16:43 Tylenol PO 650 mg Q4HR PRN Administration Pain 1 to 4 Hydrocortisone Sodium Succinate 50 mg 08/27/17 06:00 08/28/17 11:52 Solu-Cortef IVP 50 mg Q6HR BAL Administration Sodium Chloride 1,000 mls @ 150 mls/hr 08/27/17 03:00 08/28/17 16:00 Normal Saline 0.9% IV 150 mls/hr .[id number] BAL Infusion Norepinephrine Bitartrate 8 mg 250 mls @ 15 mls/hr 08/27/17 06:00 08/27/17 22 :40 / Dextrose IV Not Given .[id number] BAL Protocol 8 MCG/MIN Ciprofloxacin 200 mls @ 200 mls/hr 08/28/17 14:00 08/28/17 15:20 Cipro 400 Mg/200 Ml IV Infused Q12H BAL Infusion Oxycodone HCl 5 mg 08/27/17 02:35 08/28/17 16:13 Roxicodone PO 5 mg Q4HR PRN Administration Pain 5 to 7 Pantoprazole Sodium 40 mg 08/27/17 07:00 08/28/17 06:35 Protonix IVP 40 mg QDAC BAL Administration Polyethylene Glycol 17 gm 08/27/17 09:00 08/28/17 08:52 Miralax PO Not Given DAILY BAL Rivaroxaban 15 mg 08/27/17 09:00 08/28/17 08:46 Xarelto PO 15 mg DAILY BAL Administration Saccharomyces Boulardii 250 mg 08/27/17 08:00 08/28/17 08:47 Florastor PO 250 mg BIDWM BAL Administration Sodium Chloride 10 ml 08/27/17 06:00 08/28/17 13:43 Normal Saline Flush 0.9% IVP 10 ml Q8HR BAL Administration Thiamine HCl 100 mg 08/27/17 09:00 08/28/17 08:48 Vitamin B-1 PO 100 mg DAILY BAL Administration - Lab Result Fish Bone Diagrams: 08/28/17 04:39 08/28/17 04:39 - Additional Planning My Orders: My Active Orders 08/28/17 14:00 Ciprofloxacin 400 mg/200 ml [Cipro 400 mg/200 ml] 200 ml IV Q12H Subjective - Subjective Patient Reports: No Complaints Nursing Reports: No Complaints Objective Vital Signs: Vital Signs - 24 hr 08/27/17 08/27/17 08/27/17 18:00 19:00 19:58 Temperature 36.6 C Heart Rate [ Activity] Heart Rate [ 76 78 73 Brachial] Heart Rate [ Monitoring electrodes] Heart Rate [ Sitting] Respiratory 19 12 10 L Rate Respiratory Rate [With Activity] Respiratory Rate [Without Activity] Blood Pressure [Activity] Blood Pressure 129/86 H 114/67 108/60 [Right Brachial artery] Blood Pressure [Sitting] O2 Saturation 99 97 97 O2 Saturation [ With Activity] O2 Saturation [ Without Activity] 08/27/17 08/27/17 08/27/17 21:00 22:00 23:00 Temperature 37 C Heart Rate [ Activity] Heart Rate [ 76 84 77 Brachial] Heart Rate [ Monitoring electrodes] Heart Rate [ Sitting] Respiratory 10 L 15 15 Rate Respiratory Rate [With Activity] Respiratory Rate [Without Activity] Blood Pressure [Activity] Blood Pressure 127/74 129/77 131/80 H [Right Brachial artery] Blood Pressure [Sitting] O2 Saturation 98 97 96 O2 Saturation [ With Activity] O2 Saturation [ Without Activity] 08/28/17 08/28/17 08/28/17 00:00 01:00 02:00 Temperature 37.2 C Heart Rate [ Activity] Heart Rate [ 76 74 76 Brachial] Heart Rate [ Monitoring electrodes] Heart Rate [ Sitting] Respiratory 10 L 10 L 14 Rate Respiratory Rate [With Activity] Respiratory Rate [Without Activity] Blood Pressure [Activity] Blood Pressure 127/71 132/68 H 128/67 [Right Brachial artery] Blood Pressure [Sitting] O2 Saturation 94 94 95 O2 Saturation [ With Activity] O2 Saturation [ Without Activity] 08/28/17 08/28/17 08/28/17 03:00 04:00 04:30 Temperature 36.8 C Heart Rate [ Activity] Heart Rate [ 78 84 74 Brachial] Heart Rate [ Monitoring electrodes] Heart Rate [ Sitting] Respiratory 21 17 26 H Rate Respiratory Rate [With Activity] Respiratory Rate [Without Activity] Blood Pressure [Activity] Blood Pressure 131/80 H 120/97 H 139/87 H [Right Brachial artery] Blood Pressure [Sitting] O2 Saturation 93 97 98 O2 Saturation [ With Activity] O2 Saturation [ Without Activity] 08/28/17 08/28/17 08/28/17 06:00 06:56 08:00 Temperature 36.6 C Heart Rate [ Activity] Heart Rate [ 90 72 Brachial] Heart Rate [ 75 Monitoring electrodes] Heart Rate [ Sitting] Respiratory 24 14 14 Rate Respiratory Rate [With Activity] Respiratory Rate [Without Activity] Blood Pressure [Activity] Blood Pressure 148/101 H 125/75 119/61 [Right Brachial artery] Blood Pressure [Sitting] O2 Saturation 100 96 96 O2 Saturation [ With Activity] O2 Saturation [ Without Activity] 08/28/17 08/28/17 08/28/17 09:00 10:00 10:15 Temperature Heart Rate [ 95 Activity] Heart Rate [ Brachial] Heart Rate [ 90 84 Monitoring electrodes] Heart Rate [ 85 Sitting] Respiratory 19 14 Rate Respiratory 28 H Rate [With Activity] Respiratory 18 Rate [Without Activity] Blood Pressure 165/80 H [Activity] Blood Pressure 128/86 H 123/54 L [Right Brachial artery] Blood Pressure 123/54 L [Sitting] O2 Saturation 98 97 O2 Saturation [ 95 With Activity] O2 Saturation [ 97 Without Activity] 08/28/17 08/28/17 08/28/17 11:00 12:00 13:00 Temperature Heart Rate [ Activity] Heart Rate [ Brachial] Heart Rate [ 78 83 84 Monitoring electrodes] Heart Rate [ Sitting] Respiratory 21 13 20 Rate Respiratory Rate [With Activity] Respiratory Rate [Without Activity] Blood Pressure [Activity] Blood Pressure 131/73 H 132/67 H 141/79 H [Right Brachial artery] Blood Pressure [Sitting] O2 Saturation 95 96 98 O2 Saturation [ With Activity] O2 Saturation [ Without Activity] 08/28/17 16:00 Temperature 98.3 C H Heart Rate [ Activity] Heart Rate [ Brachial] Heart Rate [ 78 Monitoring electrodes] Heart Rate [ Sitting] Respiratory 20 Rate Respiratory Rate [With Activity] Respiratory Rate [Without Activity] Blood Pressure [Activity] Blood Pressure 142/77 H [Right Brachial artery] Blood Pressure [Sitting] O2 Saturation 97 O2 Saturation [ With Activity] O2 Saturation [ Without Activity] Oxygen O2 Source [With Activity] Room air O2 Source [Without Activity] Room air O2 Source Room air I&O (Last 24 Hrs): Intake and Output Totals x24h 08/26/17 08/27/17 08/28/17 23:59 23:59 23:59 Intake Total 6187.251 5962.5 Output Total 0 Balance 6187.251 5962.5 General: Alert, Oriented x3 HEENT: Mucous membr. moist/pink, Other (Alopecia) Neck: Supple Cardiovascular: Regular rate, No murmurs Respiratory: No respiratory distress Abdomen: Soft Extremities: Other (R 1+ edema below knee) - Results Results: Laboratory Results WBC 11.1 x10^3/uL (4.8-10.8) H 08/28/17 04:39 RBC 2.94 10^6/uL (4.20-5.40) L 08/28/17 04:39 Hgb 8.9 g/dL (12.0-16.0) L 08/28/17 04:39 Hct 26.9 % (37.0-47.0) L 08/28/17 04:39 MCV 91.6 fL (81.0-99.0) 08/28/17 04:39 MCH 30.4 pg (27.0-31.0) 08/28/17 04:39 MCHC 33.2 g/dL (32.0-36.0) 08/28/17 04:39 RDW 16.9 % (12.0-15.0) H 08/28/17 04:39 Plt Count 136 10^3/uL (130-450) 08/28/17 04:39 MPV 7.9 fL (7.9-10.8) 08/28/17 04:39 Neut # 10.0 10^3/uL (1.5-6.6) H 08/28/17 04:39 Lymph # 0.9 10^3/uL (1.5-3.5) L 08/28/17 04:39 [place] # 0.2 10^3/uL (0.0-1.0) 08/28/17 04:39 Eos # 0.0 10^3/uL (0.0-0.7) 08/28/17 04:39 Baso # 0.0 10^3/uL (0.0-0.1) 08/28/17 04:39 Absolute Nucleated RBC 0.01 x10^3/uL 08/28/17 04:39 Nucleated RBC % 0.0 /100WBC 08/28/17 04:39 ESR 93 mm/Hr (0-30) H 08/27/17 06:29 PT 25.1 secs (9.9-12.6) H 08/28/17 04:39 INR 2.3 (0.8-1.2) H 08/28/17 04:39 APTT 57.8 secs (24.9-33.3) H 08/27/17 00:50 Sodium 139 mmol/L (135-145) 08/28/17 04:39 Potassium 3.4 mmol/L (3.5-5.0) L 08/28/17 04:39 Chloride 108 mmol/L (101-111) 08/28/17 04:39 Carbon Dioxide 22 mmol/L (21-32) 08/28/17 04:39 Anion Gap 9.0 (6-13) 08/28/17 04:39 BUN 23 mg/dL (6-20) H 08/28/17 04:39 Creatinine 1.0 mg/dL (0.4-1.0) 08/28/17 04:39 Estimated GFR (MDRD) 55 (>89) L 08/28/17 04:39 Glucose 134 mg/dL (70-100) H 08/28/17 04:39 Lactic Acid 0.9 mmol/L (0.5-2.2) 08/27/17 08:56 Calcium 7.8 mg/dL (8.5-10.3) L 08/28/17 04:39 Phosphorus 3.5 mg/dL (2.5-4.6) 08/28/17 04:39 Magnesium 1.6 mg/dL (1.7-2.8) L 08/28/17 04:39 Total Bilirubin 0.2 mg/dL (0.2-1.0) 08/28/17 04:39 AST 24 IU/L (10-42) 08/28/17 04:39 ALT 15 IU/L (10-60) 08/28/17 04:39 Alkaline Phosphatase 85 IU/L (42-121) 08/28/17 04:39 Troponin I < 0.04 ng/mL (<0.49) 08/27/17 00:50 C-Reactive Protein 24.9 mg/dL (0-1.0) H 08/27/17 06:29 Total Protein 5.4 g/dL (6.7-8.2) L 08/28/17 04:39 Albumin 1.9 g/dL (3.2-5.5) L 08/28/17 04:39 Globulin 3.5 g/dL (2.1-4.2) 08/28/17 04:39 Albumin/Globulin Ratio 0.5 (1.0-2.2) L 08/28/17 04:39 Lipase 23 U/L (22-51) 08/27/17 00:50 Urine Color YELLOW 08/27/17 01:50 Urine Clarity HAZY (CLEAR) 08/27/17 01:50 Urine pH 6.0 PH (5.0-7.5) 08/27/17 01:50 Ur Specific [place] 1.015 (1.002-1.030) 08/27/17 01:50 Urine Protein 100 mg/dL (NEGATIVE) H 08/27/17 01:50 Urine Glucose (UA) NEGATIVE mg/dL (NEGATIVE) 08/27/17 01:50 Urine Ketones NEGATIVE mg/dL (NEGATIVE) 08/27/17 01:50 Urine Occult Blood LARGE (NEGATIVE) H 08/27/17 01:50 Urine Nitrite NEGATIVE (NEGATIVE) 08/27/17 01:50 Urine Bilirubin NEGATIVE (NEGATIVE) 08/27/17 01:50 Urine Urobilinogen 0.2 (NORMAL) E.U./dL (NORMAL) 08/27/17 01:50 Ur Leukocyte Esterase TRACE (NEGATIVE) H 08/27/17 01:50 Urine RBC TNTC /HPF (0-5) H 08/27/17 01:50 Urine WBC 6-10 /HPF (0-5) H 08/27/17 01:50 Ur Squamous Epith Cells RARE Squamous (<= Few) 08/27/17 01:50 Urine Bacteria Few /HPF (None Seen) 08/27/17 01:50 Ur Microscopic Review INDICATED 08/27/17 01:50 Urine Culture Comments INDICATED 08/27/17 01:50 Influenza A (Rapid) Negative (Negative) 08/27/17 02:10 Influenza B (Rapid) Negative (Negative) 08/27/17 02:10 Influenza Types A,B Ag - 08/27/17 02:10
[2017-08-28] MEDS ORDERED: DEXTROSE 5% IV SCH (18:00)
[2017-08-28] MEDS ORDERED: VANCOMYCIN IV SCH (18:00)
[2017-08-28] MEDS: MORPHINE 2 MG/ML SYRINGE IVP PRN (23:16)
[2017-08-29] MEDS: oxyCODONE 5 MG TABLET PO PRN ×6 (00:25→21:30)
[2017-08-29] MEDS: HYDROCORTISONE SUCCINATE 100 MG/2 ML VIAL IVP SCH ×4 (00:25→17:15)
[2017-08-29] MEDS: CIPROFLOXACIN 400 MG/200 ML 200 ML IV SCH ×2 (02:07→13:55)
[2017-08-29] MEDS: SODIUM CHLORIDE 0.9% 1,000 ML IV SCH ×3 (02:13→14:19)
[2017-08-29 05:31] LABS: EOSINOPHILS % (AUTO) 0.1 %; HCT - HEMATOCRIT 28.4 % (37.0-47.0); HGB - HEMOGLOBIN 9.3 g/dL (12.0-16.0); LYMPHOCYTES % (AUTO) 6.8 %; MEAN CORPUSCULAR HEMOGLOBIN 29.7 pg (27.0-31.0); MEAN CORPUSCULAR HGB CONC 32.7 g/dL (32.0-36.0); MEAN CORPUSCULAR VOLUME 90.9 fL (81.0-99.0); MEAN PLATELET VOLUME 7.7 fL (7.9-10.8); MONOCYTES % (AUTO) 2.6 %; NEUTROPHILS % (AUTO) 90.5 %; RED BLOOD COUNT 3.12 10^6/uL (4.20-5.40); RED CELL DISTRIBUTION WIDTH 16.8 % (12.0-15.0); UNCORRECTED WHITE BLOOD COUNT 13.1 x10^3/uL; WHITE BLOOD COUNT 13.1 x10^3/uL (4.8-10.8)
[2017-08-29 05:35] LABS: INR 1.7 (0.8-1.2); PT - PROTHROMBIN TIME 18.9 secs (9.9-12.6)
[2017-08-29 05:44] LABS: ALBUMIN/GLOBULIN RATIO 0.5 (1.0-2.2); BILIRUBIN,TOTAL 0.2 mg/dL (0.2-1.0); CALCIUM 8.3 mg/dL (8.5-10.3); CREATININE 0.9 mg/dL (0.4-1.0); MAGNESIUM 1.7 mg/dL (1.7-2.8); PHOSPHORUS 2.8 mg/dL (2.5-4.6); POTASSIUM 3.4 mmol/L (3.5-5.0); TOTAL PROTEIN 5.5 g/dL (6.7-8.2)
[2017-08-29 06:00] LABS: BAND NEUTROPHILS % (MANUAL) 5 %; LYMPHOCYTES % (MANUAL) 8 %; NEUTROPHILS % (MANUAL) 83 %; NP AUTO DIFFERENTIAL? YES; NP MAN DIFFERENTIAL? NO; PLATELET ESTIMATE, MANUAL NORMAL (130-450,000) (NORMAL); TOTAL CELLS COUNTED 100
[2017-08-29] MEDS: SODIUM CHLORIDE FLUSH 0.9% 10 ML SYRINGE IVP PRN ×2 (06:21→17:16)
[2017-08-29] MEDS: PANTOPRAZOLE 40 MG VIAL IVP SCH (06:21)
[2017-08-29] MEDS: SODIUM CHLORIDE FLUSH 0.9% 10 ML SYRINGE IVP SCH ×3 (06:22→17:16)
[2017-08-29] MEDS: RIVAROXABAN 15 MG TABLET PO SCH (09:23)
[2017-08-29] MEDS: THIAMINE 100 MG TABLET PO SCH (09:23)
[2017-08-29] MEDS: POLYETHYLENE GLYCOL 3350 17 GM PACKET PO SCH (09:23)
[2017-08-29] MEDS: ACETAMINOPHEN 325 MG TABLET PO PRN ×3 (09:24→21:30)
[2017-08-29] MEDS: SACCHAROMYCES BOULARDII 250 MG CAPSULE PO SCH ×2 (09:24→17:15)
--- NOTE | 2017-08-29 15:19 | PROVIDER PROGRESS NOTE ---
Assessment/Plan - Problem List (1) Septic shock Assessment/Plan: Resolved Will stop IV fluids. (2) Urinary tract infection Qualifiers: Urinary tract infection type: acute cystitis Hematuria presence: without hematuria Qualified Code(s): N30.00 - Acute cystitis without hematuria Assessment/Plan: WBC became elevated today, after broad spectrum antibiotic changed to more focused antibiotic, based on sensitivities from last Ecoli UTI. Will cancel transfer to SNF at [facility], due to this and watch CBC and clinical status. (3) Hydronephrosis Assessment/Plan: Urine output is adequate, but Pt is incontinent. 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 (5) Lymphadenopathy Assessment/Plan: As #4 above (7) Right leg DVT Assessment/Plan: Continue oral anticoagulation. - Current Meds Current Meds: Current Medications Generic Name Dose Route Start Last Admin Trade Name Freq PRN Reason Stop Dose Admin Acetaminophen 650 mg 08/27/17 02:35 08/29/17 09:24 Tylenol PO 650 mg Q4HR PRN Administration Pain 1 to 4 Hydrocortisone Sodium Succinate 50 mg 08/27/17 06:00 08/29/17 13:34 Solu-Cortef IVP 50 mg Q6HR BAL Administration Ciprofloxacin 200 mls @ 200 mls/hr 08/28/17 14:00 08/29/17 13:55 Cipro 400 Mg/200 Ml IV 200 mls/hr Q12H BAL Administration Morphine Sulfate 2 mg 08/27/17 02:35 08/28/17 23:16 Morphine IVP 2 mg Q2H PRN Administration Pain 8 to 10 Oxycodone HCl 5 mg 08/27/17 02:35 08/29/17 13:09 Roxicodone PO 5 mg Q4HR PRN Administration Pain 5 to 7 Oxycodone HCl 10 mg 08/27/17 02:35 08/29/17 09:24 Roxicodone PO 10 mg Q4HR PRN Administration Pain 8 to 10 Pantoprazole Sodium 40 mg 08/27/17 07:00 08/29/17 06:21 Protonix IVP 40 mg QDAC BAL Administration Polyethylene Glycol 17 gm 08/27/17 09:00 08/29/17 09:23 Miralax PO 17 gm DAILY BAL Administration Rivaroxaban 15 mg 08/27/17 09:00 08/29/17 09:23 Xarelto PO 15 mg DAILY BAL Administration Saccharomyces Boulardii 250 mg 08/27/17 08:00 08/29/17 09:24 Florastor PO 250 mg BIDWM BAL Administration Sodium Chloride 10 ml 08/27/17 02:35 08/29/17 06:21 Normal Saline Flush 0.9% IVP 10 ml PRN PRN Administration NEEDED PER PROVIDER ORDERS Sodium Chloride 10 ml 08/27/17 06:00 08/29/17 14:19 Normal Saline Flush 0.9% IVP Not Given Q8HR BAL Thiamine HCl 100 mg 08/27/17 09:00 08/29/17 09:23 Vitamin B-1 PO 100 mg DAILY BAL Administration - Lab Result Fish Bone Diagrams: 08/29/17 05:06 08/29/17 05:06 Subjective - Subjective Patient Reports: Feeling Better, Resting Comfortably Nursing Reports: No Complaints Objective Vital Signs: Vital Signs - 24 hr 08/28/17 08/28/17 08/29/17 16:00 20:00 00:25 Temperature 98.3 C H 36.7 C 36.9 C Heart Rate [ 76 Brachial] Heart Rate [ 78 77 Monitoring electrodes] Respiratory 20 18 16 Rate Blood Pressure 142/77 H 157/74 H 157/78 H [Right Brachial artery] O2 Saturation 97 97 98 08/29/17 08/29/17 05:09 08:20 Temperature 36.7 C 36.8 C Heart Rate [ Brachial] Heart Rate [ 80 81 Monitoring electrodes] Respiratory 16 17 Rate Blood Pressure 141/76 H 163/80 H [Right Brachial artery] O2 Saturation 98 96 Oxygen O2 Source [With Activity] Room air O2 Source [Without Activity] Room air O2 Source Room air I&O (Last 24 Hrs): Intake and Output Totals x24h 08/27/17 08/28/17 08/29/17 23:59 23:59 23:59 Intake Total 6187.251 6535.0 4352.5 Output Total 0 Balance 6187.251 6535.0 4352.5 General: Alert, Oriented x3 HEENT: Mucous membr. moist/pink, Other (Alopecia ? of L eye ptosis) Neck: Supple Cardiovascular: Regular rate, No murmurs Respiratory: No respiratory distress Extremities: Other (R edematous, mild) - Results Results: Laboratory Results WBC 13.1 x10^3/uL (4.8-10.8) H 08/29/17 05:06 RBC 3.12 10^6/uL (4.20-5.40) L 08/29/17 05:06 Hgb 9.3 g/dL (12.0-16.0) L 08/29/17 05:06 Hct 28.4 % (37.0-47.0) L 08/29/17 05:06 MCV 90.9 fL (81.0-99.0) 08/29/17 05:06 MCH 29.7 pg (27.0-31.0) 08/29/17 05:06 MCHC 32.7 g/dL (32.0-36.0) 08/29/17 05:06 RDW 16.8 % (12.0-15.0) H 08/29/17 05:06 Plt Count 150 10^3/uL (130-450) 08/29/17 05:06 MPV 7.7 fL (7.9-10.8) L 08/29/17 05:06 Neut # Not Reportable 08/29/17 05:06 Lymph # Not Reportable 08/29/17 05:06 [place] # Not Reportable 08/29/17 05:06 Eos # Not Reportable 08/29/17 05:06 Baso # Not Reportable 08/29/17 05:06 Absolute Nucleated RBC Not Reportable 08/29/17 05:06 Total Counted 100 08/29/17 05:06 Band Neuts % (Manual) 5 % (0-10) 08/29/17 05:06 Nucleated RBC % Not Reportable 08/29/17 05:06 Neutrophils # (Manual) 11.5 10^3/uL (1.5-6.6) H 08/29/17 05:06 Lymphocytes # (Manual) 1.0 10^3/uL (1.5-3.5) L 08/29/17 05:06 Monocytes # (Manual) 0.5 10^3/uL (0.0-1.0) 08/29/17 05:06 Differential Comment MANUAL DIFFERENTIAL 08/29/17 05:06 Platelet Estimate NORMAL (130-450,000) (NORMAL) 08/29/17 05:06 RBC Morph Micro Appear NORMAL APPEARANCE (NORMAL) 08/29/17 05:06 ESR 93 mm/Hr (0-30) H 08/27/17 06:29 PT 18.9 secs (9.9-12.6) H 08/29/17 05:06 INR 1.7 (0.8-1.2) H 08/29/17 05:06 APTT 57.8 secs (24.9-33.3) H 08/27/17 00:50 Sodium 138 mmol/L (135-145) 08/29/17 05:06 Potassium 3.4 mmol/L (3.5-5.0) L 08/29/17 05:06 Chloride 111 mmol/L (101-111) 08/29/17 05:06 Carbon Dioxide 20 mmol/L (21-32) L 08/29/17 05:06 Anion Gap 7.0 (6-13) 08/29/17 05:06 BUN 21 mg/dL (6-20) H 08/29/17 05:06 Creatinine 0.9 mg/dL (0.4-1.0) 08/29/17 05:06 Estimated GFR (MDRD) 62 (>89) L 08/29/17 05:06 Glucose 123 mg/dL (70-100) H 08/29/17 05:06 Lactic Acid 0.9 mmol/L (0.5-2.2) 08/27/17 08:56 Calcium 8.3 mg/dL (8.5-10.3) L 08/29/17 05:06 Phosphorus 2.8 mg/dL (2.5-4.6) 08/29/17 05:06 Magnesium 1.7 mg/dL (1.7-2.8) 08/29/17 05:06 Total Bilirubin 0.2 mg/dL (0.2-1.0) 08/29/17 05:06 AST 20 IU/L (10-42) 08/29/17 05:06 ALT 16 IU/L (10-60) 08/29/17 05:06 Alkaline Phosphatase 78 IU/L (42-121) 08/29/17 05:06 Troponin I < 0.04 ng/mL (<0.49) 08/27/17 00:50 C-Reactive Protein 24.9 mg/dL (0-1.0) H 08/27/17 06:29 Total Protein 5.5 g/dL (6.7-8.2) L 08/29/17 05:06 Albumin 1.9 g/dL (3.2-5.5) L 08/29/17 05:06 Globulin 3.6 g/dL (2.1-4.2) 08/29/17 05:06 Albumin/Globulin Ratio 0.5 (1.0-2.2) L 08/29/17 05:06 Lipase 23 U/L (22-51) 08/27/17 00:50 Urine Color YELLOW 08/27/17 01:50 Urine Clarity HAZY (CLEAR) 08/27/17 01:50 Urine pH 6.0 PH (5.0-7.5) 08/27/17 01:50 Ur Specific [place] 1.015 (1.002-1.030) 08/27/17 01:50 Urine Protein 100 mg/dL (NEGATIVE) H 08/27/17 01:50 Urine Glucose (UA) NEGATIVE mg/dL (NEGATIVE) 08/27/17 01:50 Urine Ketones NEGATIVE mg/dL (NEGATIVE) 08/27/17 01:50 Urine Occult Blood LARGE (NEGATIVE) H 08/27/17 01:50 Urine Nitrite NEGATIVE (NEGATIVE) 08/27/17 01:50 Urine Bilirubin NEGATIVE (NEGATIVE) 08/27/17 01:50 Urine Urobilinogen 0.2 (NORMAL) E.U./dL (NORMAL) 08/27/17 01:50 Ur Leukocyte Esterase TRACE (NEGATIVE) H 08/27/17 01:50 Urine RBC TNTC /HPF (0-5) H 08/27/17 01:50 Urine WBC 6-10 /HPF (0-5) H 08/27/17 01:50 Ur Squamous Epith Cells RARE Squamous (<= Few) 08/27/17 01:50 Urine Bacteria Few /HPF (None Seen) 08/27/17 01:50 Ur Microscopic Review INDICATED 08/27/17 01:50 Urine Culture Comments INDICATED 08/27/17 01:50 Influenza A (Rapid) Negative (Negative) 08/27/17 02:10 Influenza B (Rapid) Negative (Negative) 08/27/17 02:10 Influenza Types A,B Ag - 08/27/17 02:10
[2017-08-30] MEDS: HYDROCORTISONE SUCCINATE 100 MG/2 ML VIAL IVP SCH ×3 (00:49→12:41)
[2017-08-30] MEDS: SODIUM CHLORIDE FLUSH 0.9% 10 ML SYRINGE IVP PRN ×3 (00:49→06:27)
[2017-08-30] MEDS: CIPROFLOXACIN 400 MG/200 ML 200 ML IV SCH (00:59)
[2017-08-30] MEDS: oxyCODONE 5 MG TABLET PO PRN ×3 (01:14→09:06)
[2017-08-30 05:35] LABS: BASOPHILS % (AUTO) 0.1 %; HCT - HEMATOCRIT 28.6 % (37.0-47.0); HGB - HEMOGLOBIN 9.4 g/dL (12.0-16.0); LYMPHOCYTES # (AUTO) 1.1 10^3/uL (1.5-3.5); LYMPHOCYTES % (AUTO) 8.7 %; MEAN CORPUSCULAR HEMOGLOBIN 29.8 pg (27.0-31.0); MEAN CORPUSCULAR HGB CONC 32.7 g/dL (32.0-36.0); MEAN CORPUSCULAR VOLUME 91.1 fL (81.0-99.0); MEAN PLATELET VOLUME 7.3 fL (7.9-10.8); MONOCYTES # (AUTO) 0.5 10^3/uL (0.0-1.0); MONOCYTES % (AUTO) 3.7 %; NEUTROPHILS # (AUTO) 10.6 10^3/uL (1.5-6.6); NEUTROPHILS % (AUTO) 87.5 %; RED BLOOD COUNT 3.14 10^6/uL (4.20-5.40); RED CELL DISTRIBUTION WIDTH 16.7 % (12.0-15.0); UNCORRECTED WHITE BLOOD COUNT 12.1 x10^3/uL; WHITE BLOOD COUNT 12.1 x10^3/uL (4.8-10.8)
[2017-08-30 05:39] LABS: INR 1.7 (0.8-1.2); PT - PROTHROMBIN TIME 18.3 secs (9.9-12.6)
[2017-08-30 06:25] LABS: ALBUMIN/GLOBULIN RATIO 0.6 (1.0-2.2); BILIRUBIN,TOTAL 0.4 mg/dL (0.2-1.0); CALCIUM 8.7 mg/dL (8.5-10.3); CREATININE 0.9 mg/dL (0.4-1.0); MAGNESIUM 1.7 mg/dL (1.7-2.8); PHOSPHORUS 2.5 mg/dL (2.5-4.6); POTASSIUM 3.7 mmol/L (3.5-5.0); TOTAL PROTEIN 5.9 g/dL (6.7-8.2)
[2017-08-30] MEDS: PANTOPRAZOLE 40 MG VIAL IVP SCH (06:26)
[2017-08-30] MEDS: SODIUM CHLORIDE FLUSH 0.9% 10 ML SYRINGE IVP SCH (06:26)
[2017-08-30] MEDS: ACETAMINOPHEN 325 MG TABLET PO PRN (07:00)
[2017-08-30 07:54] VITALS: BP 163/81
[2017-08-30] MEDS: SACCHAROMYCES BOULARDII 250 MG CAPSULE PO SCH (09:05)
[2017-08-30] MEDS: RIVAROXABAN 15 MG TABLET PO SCH (09:05)
[2017-08-30] MEDS: THIAMINE 100 MG TABLET PO SCH (09:05)
[2017-08-30] MEDS: POLYETHYLENE GLYCOL 3350 17 GM PACKET PO SCH (09:06)
--- NOTE | 2017-08-30 09:18 | Discharge Plan ---
"Discharge Plan for SNF / PENITENTIARY - DC Plan and Transition Orders Disposition: 03 SNF DC/Xfer Condition: Stable SNF Transition Orders: Admit to: COW under the care of Dr Bigg Mantilla Discharge Diagnosis: 1) Sepsis from UTI 2) UTI 3) Hydronephrosis with tumor invasion of bladder 4) Acute kidney injury, resolved 5) Lymphadenopathy, extensive, probably related to MAGNETIC LOCATER cancer 6) MAGNETIC LOCATER malignancy with brain mets 7) Right leg DVT, recently diagnosed Medicare Certification: I certify that Post Hospital fci care is medically necessary on a continuing basis for any of the conditions for which she/he is receiving care during hospitalization. Notify PCP of admission and forward orders to primary provider for signature. Weight on admission and weekly. Call PCP immediately if weight increases by 10 pounds or if patient develops dyspnea, chest pain/tightness or edema. House Bowel Program: yes If no BM after 2 days, nurse may give M.O.M. 30ml PO PRN and /or ducolax Supp 1 OH and /or JORY 250mg P.O., and/or senna 1-2 tabs PO. On day 3 nurse may give repeat above order until residents constipation is resolved. Immunizations: Annual Influenza Vaccine: yes. (between Jun 05 and January 02.) Unless allergy or already given Two-Step PPD: yes per [facility] [phone] or appropriate documentation of approved exceptions Treatments & Other Orders: PT and OT to maximize functional capacity Oxygen Orders: none Lab Tests or X-Rays Orders: none Orthopedic Orders: none. Medications: PLEASE REFER TO THE DISCHARGE MEDICATION LIST. Allergies and Adverse Reactions: Allergies Allergy/AdvReac Type Severity Reaction Status Date / Time hydrocodone AdvReac Unknown Emesis Verified 08/30/17 10:37 - Medications New Prescriptions: oxyCODONE [Roxicodone] 5 mg PO Q4HR PRN #28 tablet PRN Reason: Pain 5 to 7 - Diet Type: Regular Texture: Regular Liquids: Thin May have monthly special meal: Yes - Therapies | Activity Therapy: Evaluation | Treat if indicated: PT, OT Rehabilitation Potential: Maximize functional status Activity: Activity as Tolerated Follow Up: Keep your appointment at [facility] as you have already arranged"
[2017-08-30] MEDS: MORPHINE 2 MG/ML SYRINGE IVP PRN (10:30)
[2017-08-30] MEDS ORDERED: oxyCODONE 5 MG TABLET PO PRN (10:38)
[2017-08-30] MEDS ORDERED: ACETAMINOPHEN 500 MG TABLET PO PRN (10:38)
[2017-08-30] MEDS ORDERED: CIPROFLOXACIN 400 MG/200 ML 200 ML IV SCH (11:00)
[2017-08-31] MEDS ORDERED: PANTOPRAZOLE 40 MG TABLET PO SCH (09:00)
--- NOTE | 2017-09-07 14:03 | DISCHARGE SUMMARY ---
DATE OF ADMISSION: 08/27/2017 DATE OF DISCHARGE: 08/30/2017 HOSPITAL COURSE: This is a 67-year-old white female with a history of ovarian tumor with brain metastasis, undergoing brain irradiation and treatment at [facility] in [place], history of right leg DVT and recent admission for altered mental status felt to be secondary to urinary tract infection. The patient had been home for 4 days after that last admission for the UTI and started to develop fever and chills, lethargy and then altered mental status and was brought to the hospital by her and diagnosed with sepsis (fever, tachycardia, tachypnea and elevated lactic acid level of 3.1). She was placed in the intensive care unit for management of this. HOSPITAL COURSE AND DISCHARGE DIAGNOSES 1. Sepsis. The patient required a Levophed drip for brief hypotension, she had IV fluid management. She was fully cultured, no cultures were growing any bacteria at the time of discharge. The patient was changed from her oral ciprofloxacin for the UTI to broad spectrum antibiotics using vancomycin and Zosyn for presumed recurrent UTI causing the sepsis. After 2 days, this antibiotic was changed to IV ciprofloxacin based on sensitivities of the E coli grown at the time of the last recent admission from her cultures. After starting ciprofloxacin the patient's white blood count increased, her discharge was canceled, but the following day she continued to improve, white blood count was dropping and the patient agreed to be placed in a long-term facility for physical therapy. IV ciprofloxacin was continued to be administered at the SNF ([facility]). 2. Urinary tract infection, same as #1 above. 3. Hydronephrosis. Workup of this recurrent urinary tract infection, the patient underwent a retroperitoneal ultrasound, which showed bilateral hydronephrosis. Once her creatinine improved with IV hydration, she underwent a CT of the abdomen and pelvis with contrast and with delayed venous phase to evaluate for masses (see 5 below.). The patient's creatinine remained stable after hydration as she is making urine (accurate output could not be done as she was incontinent, wearing an adult diaper throughout the admission). 4. Lymphadenopathy. The ultrasound and CT of the abdomen revealed extensive masses and lymphadenopathy. "Left periaortic lymph nodes measuring 3.3 x 2.3 cm , enlarged upper abdominal gastrohepatic lymph node measuring 3.1 x 2.1 cm, and large central mesenteric lymph node measuring 1.4 x 1.3 cm, right external iliac chain enlarged nodes. Enlarged bilateral inguinal lymph nodes. Mass of the posterior left psoas muscle measuring 2.4 x 1.9 cm. Multilobulated contour to the uterus. Soft tissue thickening along the posterior wall of the bladder measuring 15 mm thickness." Followup of this is deferred to her oncologist. 5. Ovarian cancer with metastasis to the brain and a bladder mass and pelvic lymphadenopathy. Given before above. Management deferred to her oncologist. 6. Right leg DVT. The patient was maintained on her oral anticoagulant throughout this admission. She had no complaints of pain in the right calf. PHYSICAL EXAMINATION AT DISCHARGE: Stable. VITAL SIGNS: Blood pressure of 160/80, heart rate of 80 and sinus rhythm, afebrile, respiratory rate 16. HEENT: Alopecia and moist oral mucosa. NECK: No JVD. CHEST: Diminished breath sounds. CARDIOVASCULAR: Heart sounds normal. ABDOMEN: Soft. EXTREMITIES: The right calf was slightly larger than the left. No pedal edema. NEUROLOGIC: Intact. IMAGING AND LABS: Reviewed and summarized above. CODE STATUS: FULL CODE. FOLLOWUP: With her PCP and her oncologist in [place] (the patient has a 09/10 appointment for followup there). MEDICATIONS AT THE TIME OF DISCHARGE 1. Oxycodone 5 mg p.o. q.4h. p.r.n. 2. Ciprofloxacin 400 mg q.12h. until 09/06/2017. 3. All her other prehospitalization medications were continued, except the p.o. Cipro was discontinued. TIME REQUIRED TO COMPLETE THIS ENTIRE DISCHARGE: 60 minutes. JOB #: [id number] EXT JOB #:[id number] [place]
== END 2017-08-30 15:50 | DRG 871 ==
LOC: EDUNIT# → ED 00:34 → MS3 02:36 → ICU 06:27 → MS3 08-28 18:38
PROVIDERS: ADMIT Internal Medicine; ATTEND Internal Medicine
DX: A41.51 Sepsis due to Escherichia coli [E. coli] (principal); R65.21 Severe sepsis with septic shock; C56.9 Malignant neoplasm of unspecified ovary; C79.31 Secondary malignant neoplasm of brain; C79.11 Secondary malignant neoplasm of bladder; C77.5 Secondary and unspecified malignant neoplasm of intrapelvic lymph nodes; N17.9 Acute kidney failure, unspecified; N30.00 Acute cystitis without hematuria; E87.1 Hypo-osmolality and hyponatremia; I82.411 Acute embolism and thrombosis of right femoral vein; N13.39 Other hydronephrosis; E86.0 Dehydration; E86.1 Hypovolemia; G89.3 Neoplasm related pain (acute) (chronic); G62.9 Polyneuropathy, unspecified; E66.9 Obesity, unspecified; Z87.891 Personal history of nicotine dependence; Z79.52 Long term (current) use of systemic steroids; Z68.32 Body mass index [BMI] 32.0-32.9, adult; Z92.21 Personal history of antineoplastic chemotherapy; Z79.01 Long term (current) use of anticoagulants; Z92.3 Personal history of irradiation
CPT/HCPCS: 36415; 51701; 70450; 71010; 74177; 76770; 80048; 80053; 81001; 81003; 82040; 83605; 83690; 83735; 84100; 84484; 85025; 85610; 85651; 85730; 86140; 87040; 87086; 87150; 87275; 87276; 93005; 93306; 96361; 96365; 99285

== ENCOUNTER 2017-08-31 15:52 | Outpatient (CLI) | payer OTHER, MEDICARE | END 2017-08-31 15:53 | disposition critical access hospital (66) | LOC: EMS 15:52 | PROVIDERS: ATTEND Surgery | DX: R41.82 Altered mental status, unspecified (principal) | CPT/HCPCS: A0425; A0429 ==

== ENCOUNTER 2017-08-31 15:57 | Inpatient (IN) | payer OTHER, MEDICARE ==
[2017-08-31] MEDS ORDERED: SODIUM CHLORIDE 0.9% 1,000 ML IV ONE (16:19)
--- NOTE | 2017-08-31 16:24 | ED Physician Documentation ---
PD HPI ALTERED MENTAL STATUS - Stated complaint Stated Complaint: AMS - Chief complaint Chief Complaint: Neuro - History obtained from History obtained from: Patient, Family, EMS - History of Present Illness Timing - onset: Other (67-year-old woman with metastatic ovarian cancer, stage IV with history of cranial metastases and intra-abdominal metastases. Recent admission here for sepsis, felt to be due to do UTI, she did have a positive urinalysis but the culture did not grow anything. She did have hydronephrosis from tumor load. She is on Cipro twice daily IV at the half-way but was brought back today because her mental status was worse and she had a 102.5 temperature. Patient is slightly somnolent but alert and oriented historian who complains of abdominal pain. She denies any urinary complaints or cough.) Review of Systems Ten Systems: 10 systems reviewed and negative Constitutional: reports: Fever, Chills Cardiac: denies: Chest pain / pressure, Palpitations Respiratory: denies: Dyspnea, Cough GI: reports: Abdominal Pain. 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 Psych: Depression Musculoskeletal: Osteoarthritis - Past Surgical History Past Surgical History: Yes Ortho: Carpal Tunnel surgery - Present Medications Home Medications: Ambulatory Orders Medication Instructions Recorded Confirmed Acetaminophen [Tylenol Extra 1,000 mg PO Q6H PRN 05/04/16 08/31/17 Strength] Pantoprazole [Protonix] 40 mg PO DAILY 08/27/17 08/31/17 Rivaroxaban [Xarelto] 15 mg PO 0800,1700 #35 tablet 08/30/17 08/31/17 Rivaroxaban [Xarelto] 20 mg PO DAILY #30 tablet 08/30/17 08/31/17 Thiamine HCl [Vitamin B-1] 100 mg PO DAILY #60 08/30/17 08/31/17 oxyCODONE [Roxicodone] 5 mg PO Q4HR PRN #28 tablet 08/30/17 08/31/17 Ciprofloxacin HCl [Cipro] 400 mg IV BID 08/31/17 08/31/17 - Allergies Allergies/Adverse Reactions: Allergies Allergy/AdvReac Type Severity Reaction Status Date / Time hydrocodone AdvReac Unknown Emesis Verified 08/31/17 16:13 - Social History Does the pt smoke?: No Smoking Status: Never smoker Does the pt drink ETOH?: No Does the pt have substance abuse?: No - Family History Family history: reports: Non contributory - Immunizations Immunizations are current?: Yes - POLST Patient has POLST: Yes POLST Status: Full Code PD ED PE NORMAL - Vitals Vital signs reviewed: Yes - General General: Alert and oriented X 3, Other (Somnolent but arousable, reasonable historian, very dry mucous membranes, tachycardic.) - HEENT HEENT: PERRL, EOMI - Neck Neck: Supple, no meningeal sign, No bony TTP - Cardiac Cardiac: Other (Tachycardic, regular, no murmur) - Respiratory Respiratory: No respiratory distress, Clear bilaterally - Abdomen Abdomen: Other (Severe lower abdominal tenderness without guarding or rebound; She has cellulitis of the abdominal wall on the right extending down into the thigh, CT imaging shows no evidence of necrotizing tissue infection.) - Back Back: No CVA TTP, No spinal TTP - Derm Derm: Normal color, Warm and dry - Neuro Neuro: Alert and oriented X 3 Eye Opening: Spontaneous Motor: Obeys Commands Verbal: Oriented GCS Score: 15 - Psych Psych: Normal mood, Normal affect Results - Vitals Vitals: Vital Signs - 24 hr 08/31/17 08/31/17 16:01 18:16 Temperature 36.2 C L Heart Rate 110 H 98 Respiratory 17 18 Rate Blood Pressure 124/62 140/70 H O2 Saturation 98 97 Oxygen O2 Source [] Room air O2 Source [] Room air O2 Source Room air - Labs Labs: Laboratory Tests 08/31/17 08/31/17 08/31/17 16:28 16:28 16:33 WBC 10.5 RBC 3.26 L Hgb 9.9 L Hct 29.6 L MCV 90.9 MCH 30.5 MCHC 33.5 RDW 16.9 H Plt Count 210 MPV 7.1 L Neut # 9.1 H Lymph # 0.8 L [place] # 0.4 Eos # 0.0 Baso # 0.0 Absolute Nucleated RBC 0.00 Nucleated RBC % 0.0 Sodium 133 L Potassium 3.8 Chloride 102 Carbon Dioxide 19 L Anion Gap 12.0 BUN 36 H Creatinine 2.1 H Estimated GFR (MDRD) 23 L Glucose 131 H Lactic Acid 1.9 Calcium 8.4 L Total Bilirubin 0.4 AST 19 ALT 13 Alkaline Phosphatase 75 Total Protein 5.7 L Albumin 1.9 L Globulin 3.8 Albumin/Globulin Ratio 0.5 L Lipase 27 Urine Color Urine Clarity Urine pH Ur Specific [place] Urine Protein Urine Glucose (UA) Urine Ketones Urine Occult Blood Urine Nitrite Urine Bilirubin Urine Urobilinogen Ur Leukocyte Esterase Ur Microscopic Review Urine Culture Comments 08/31/17 17:07 WBC RBC Hgb Hct MCV MCH MCHC RDW Plt Count MPV Neut # Lymph # [place] # Eos # Baso # Absolute Nucleated RBC Nucleated RBC % Sodium Potassium Chloride Carbon Dioxide Anion Gap BUN Creatinine Estimated GFR (MDRD) Glucose Lactic Acid Calcium Total Bilirubin AST ALT Alkaline Phosphatase Total Protein Albumin Globulin Albumin/Globulin Ratio Lipase Urine Color YELLOW Urine Clarity CLEAR Urine pH 6.0 Ur Specific [place] <=1.005 Urine Protein NEGATIVE Urine Glucose (UA) NEGATIVE Urine Ketones NEGATIVE Urine Occult Blood TRACE-INTA Urine Nitrite NEGATIVE Urine Bilirubin NEGATIVE Urine Urobilinogen 0.2 (NORMAL) Ur Leukocyte Esterase NEGATIVE Ur Microscopic Review NOT INDICATED Urine Culture Comments NOT INDICATED - Rads (name of study) 2v chest Radiology: EMP read contemporaneously (Worsening right upper lobe opacities) CT abdomen and pelvis Radiology: EMP read contemporaneously (Persistent hydronephrosis bilaterally and pulmonary nodules, lymphadenopathy everywhere, gas and fluid within the endometrium, stable bladder wall thickening.) PD MEDICAL DECISION MAKING - ED course ED course: 67-year-old woman with metastatic cancer presents with worsening fever in the setting of being on Cipro for presumed UTI with negative culture on last admission. She does have abdominal wall cellulitis on the right and imaging findings as shown. I discussed the gas and fluid within the endometrium with Dr. Evans who felt this was a normal finding given her clinical situation and does not indicate an endometrial infection.She also has evidence of pneumonia on chest x-ray. This will be treated with Zosyn and Linezolid (given ARF) and she will need to be admitted given the dehydration, acute renal failure. 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
[2017-08-31] MEDS ORDERED: IOPAMIDOL-300 100 ML VIAL ONE (16:33)
[2017-08-31 16:42] LABS: BASOPHILS % (AUTO) 0.3 %; EOSINOPHILS % (AUTO) 0.4 %; HCT - HEMATOCRIT 29.6 % (37.0-47.0); HGB - HEMOGLOBIN 9.9 g/dL (12.0-16.0); LYMPHOCYTES # (AUTO) 0.8 10^3/uL (1.5-3.5); LYMPHOCYTES % (AUTO) 8.1 %; MEAN CORPUSCULAR HEMOGLOBIN 30.5 pg (27.0-31.0); MEAN CORPUSCULAR HGB CONC 33.5 g/dL (32.0-36.0); MEAN CORPUSCULAR VOLUME 90.9 fL (81.0-99.0); MEAN PLATELET VOLUME 7.1 fL (7.9-10.8); MONOCYTES # (AUTO) 0.4 10^3/uL (0.0-1.0); MONOCYTES % (AUTO) 3.8 %; NEUTROPHILS # (AUTO) 9.1 10^3/uL (1.5-6.6); NEUTROPHILS % (AUTO) 87.4 %; RED BLOOD COUNT 3.26 10^6/uL (4.20-5.40); RED CELL DISTRIBUTION WIDTH 16.9 % (12.0-15.0); UNCORRECTED WHITE BLOOD COUNT 10.5 x10^3/uL; WHITE BLOOD COUNT 10.5 x10^3/uL (4.8-10.8)
[2017-08-31 16:54] LABS: ALBUMIN/GLOBULIN RATIO 0.5 (1.0-2.2); BILIRUBIN,TOTAL 0.4 mg/dL (0.2-1.0); CALCIUM 8.4 mg/dL (8.5-10.3); CREATININE 2.1 mg/dL (0.4-1.0); POTASSIUM 3.8 mmol/L (3.5-5.0); TOTAL PROTEIN 5.7 g/dL (6.7-8.2)
[2017-08-31 17:17] LABS: BILIRUBIN,URINE NEGATIVE (NEGATIVE)
[2017-08-31 17:18] LABS: UA CHARGE (STRIP ONLY) YES; UR CULTURE IF IND NOT INDICATED
--- NOTE | 2017-08-31 17:41 | XRAY Preliminary Report ---
Exam: XR CHEST 2 VIEW PA/LAT IMPRESSION: 1. Worsening right upper lobe opacities suspicious for infiltrates in this patient with a cough. 2. Bronchial wall thickening which could be associated with bronchitis or reactive airway disease. [facility] SITE ID: [id number]
--- NOTE | 2017-08-31 17:50 | CT Preliminary Report ---
Exam: CT ABDOMEN/PELVIS W/O IMPRESSION: 1. Persistent bilateral hydronephrosis and hydroureter down to the midpelvis. 2. Persistent pulmonary nodules and retroperitoneal, mesenteric, pelvic, and inguinal lymphadenopathy . 3. Gas and fluid within the endometrium. 4. Stable bladder wall thickening, especially posteriorly. [facility] SITE ID: [id number]
--- NOTE | 2017-08-31 17:52 | CT Report ---
EXAM: CT ABDOMEN AND PELVIS EXAM DATE: 08/31/2017 05:21 PM. CLINICAL HISTORY: Continued abdomen pain. History of pelvic malignancy. COMPARISONS: 08/28/2017. TECHNIQUE: Routine helical CT imaging was performed through the abdomen and pelvis. IV contrast: None . Enteric contrast: No. Reconstructions: Coronal and sagittal. In accordance with CT protocol optimization, one or more of the following dose reduction techniques w ere utilized for this exam: automated exposure control, adjustment of mA and/or KV based on patient s ize, or use of iterative reconstructive technique. FINDINGS: Lung Bases: Multiple small pulmonary nodules again noted. Small left and tiny right pleural effusion. Liver: Normal. No masses. Gallbladder/Bile Ducts: Unremarkable. Spleen: Normal. Pancreas: Normal. Adrenal Glands: Normal. Kidneys: Bilateral hydronephrosis and hydroureter down to the midpelvis. No stones or other intrarena l abnormality. Peritoneal Cavity/Bowel: Stable mesenteric and left periaortic lymphadenopathy. No free fluid or free air. No dilated bowel or focal bowel wall abnormality. The appendix is well visualized and normal. Pelvic Organs: Gas and fluid again noted within the endometrium. Thick-walled bladder, especially pos teriorly. Bilateral external iliac and inguinal lymphadenopathy appears stable. Vasculature: No aneurysms or other significant abnormality. Bones: No significant abnormality. Other: Body wall edema. IMPRESSION: 1. Persistent bilateral hydronephrosis and hydroureter down to the midpelvis. 2. Persistent pulmonary nodules and retroperitoneal, mesenteric, pelvic, and inguinal lymphadenopathy . 3. Gas and fluid within the endometrium. 4. Stable bladder wall thickening, especially posteriorly. [facility] Referring Provider Line: [phone] SITE ID: [id number]
--- NOTE | 2017-08-31 17:56 | XRAY Report ---
EXAM: CHEST RADIOGRAPHY EXAM DATE: 08/31/2017 05:17 PM. CLINICAL HISTORY: Fever. COMPARISON: None. TECHNIQUE: 2 views. FINDINGS: Lungs/Pleura: Patchy interstitial densities are noted in the right upper lobe. No pneumothorax or eff usions. Bronchial wall thickening is noted. Mediastinum: Stable cardiac silhouette. Other: Right-sided port terminates in the mid to lower SVC. IMPRESSION: 1. Worsening right upper lobe opacities suspicious for infiltrates in this patient with a cough. 2. Bronchial wall thickening which could be associated with bronchitis or reactive airways disease. [facility] Referring Provider Line: [phone] SITE ID: [id number]
[2017-08-31] MEDS ORDERED: PIPERACILLIN/TAZOBACTAM 4.5 GM in SODIUM CHLORIDE 0.9% MINIBAG 100 ML IV STA (18:13)
[2017-08-31] MEDS ORDERED: MORPHINE 10 MG/ML VIAL IVP STA (18:56)
[2017-08-31] MEDS ORDERED: LINEZOLID 600 MG/300 ML 600 MG/300 ML BAG IV SCH (19:00)
[2017-08-31] MEDS ORDERED: MORPHINE 10 MG/ML VIAL ONE (19:10)
[2017-08-31] MEDS ORDERED: oxyCODONE 5 MG TABLET PO PRN (20:22)
[2017-08-31] MEDS ORDERED: SODIUM CHLORIDE FLUSH 0.9% 10 ML SYRINGE IVP PRN (20:22)
[2017-08-31] MEDS ORDERED: ONDANSETRON 4 MG/2 ML VIAL IVP PRN (20:22)
[2017-08-31] MEDS ORDERED: ACETAMINOPHEN 325 MG TABLET PO PRN (20:22)
[2017-08-31] MEDS ORDERED: ALBUTEROL NEB 2.5 MG/3 ML INH PRN (20:22)
[2017-08-31] MEDS ORDERED: ZOLPIDEM 5 MG TABLET PO PRN (20:22)
[2017-08-31] MEDS ORDERED: PROCHLORPERAZINE 10 MG/2 ML VIAL IVP PRN (20:22)
[2017-08-31] MEDS ORDERED: CEFEPIME 2 GM in SODIUM CHLORIDE 0.9% MINIBAG 100 ML IV SCH (21:00)
[2017-08-31] MEDS ORDERED: VANCOMYCIN PER PHARMACY 0.1 GM in SODIUM CHLORIDE 0.9% 250 ML IV SCH (21:00)
[2017-08-31] MEDS: SODIUM CHLORIDE 0.9% 1,000 ML IV SCH (21:02)
[2017-08-31] MEDS: oxyCODONE 5 MG TABLET PO PRN (22:00)
[2017-08-31] MEDS ORDERED: CEFEPIME 1 GM in SODIUM CHLORIDE 0.9% MINIBAG 100 ML IV SCH (22:00)
[2017-08-31] MEDS: SODIUM CHLORIDE FLUSH 0.9% 10 ML SYRINGE IVP SCH (22:02)
--- NOTE | 2017-09-01 03:37 | HISTORY & PHYSICAL EXAMINATION ---
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 coli bacteremia who was recently discharged from [facility] on 08/30/2017 after presenting with altered mental status and sepsis secondary to UTI on 08/27/2017 the patient was discharged to [facility] and returns today with increasing lethargy and fever. According to the patient's the patient was doing fairly well when she was discharged from the hospital yesterday however one day later she seemed increasingly lethargic. The staff at [facility] became concerned and checked her vitals and found that the patient was tachycardic and febrile. They also found that she had increasing edema and tenderness of her right lower abdominal wall. The patient was therefore sent to the emergency department. The patient is unable to provide any further history but according to the she has not been having any increasing cough or complaining of any increasing shortness of air. She just appeared very weak and lethargic today. She has not been having any diarrhea or vomiting that the patient's knows of. The patient was getting antibiotics for her urinary tract infection through an IV at [facility]. On presentation to the emergency department the patient is afebrile however she is tachycardic and blood pressure is stable. The patient was not in any respiratory distress but she was quite lethargic and was not appropriately able to give history. The patient's lab work revealed an acute kidney injury with a creatinine of 2.1 which was only 0.9 when she left the hospital yesterday. The patient's lactic acid was normal she did have a slight hyponatremia. The patient did not have any leukocytosis and her hemoglobin was stable. The patient's right lower abdominal wall did appear to be quite swollen, warm and tender. The patient did undergo a CT of her abdomen and pelvis which revealed persistent bilateral hydronephrosis and hydroureter down to the mid pelvis as well as persistent pulmonary nodules and retroperitoneal, mesenteric, pelvic and inguinal lymphadenopathy. The patient did not have any findings of abscess but the patient's abdominal wall was concerning for cellulitis. The patient had a repeat UA which was negative and underwent a chest x-ray which did reveal a worsening right upper lobe opacity suspicious for infiltrates. The patient was [facility] for treatment of cellulitis and healthcare associated pneumonia. History - Past Medical History Cardiovascular: reports: None Respiratory: reports: None Neuro: reports: Peripheral neuropathy Endocrine/Autoimmune: reports: None EYEWEAR CONSULTANT: reports: Ovarian cancer (Serous carcinoma with metastasis to lymph nodes and brain status post craniotomy and chemoradiation) Psych: reports: Depression Musculoskeletal: reports: Osteoarthritis, Other (DVT right leg) MRSA Hx?: No - Past Surgical History Ortho: reports: Carpal Tunnel surgery - Family & Social History Family History: Mother: Alive and Well (Father is 90 years old and healthy and mother is in her late 80s and healthy.), Father: Alive and Well, Sister: Cancer (Grandmother had ovarian cancer and one brother and one sister both have cancer) , Brother: Cancer, Other family: Cancer Living arrangement: At home Living Situation: With spouse/s.o. Social History Notes: The patient is originally from [facility]. 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 The patient was very healthy and took very good care of herself prior to the cancer diagnosis. 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 She ate very healthy. She and her current have been together for 19 years and have been for the last 5 years. The patient has 1 biological daughter who lives near [place]. The patient and her were heavy drinkers for many years and did occasionally smoke when they would drink. The patient denies any illicit drug use. Currently the patient is taken care of by her at home. Although she has been at [facility] since her recent discharge just 1 day ago. They live in [place]. - POLST Patient has POLST: Yes POLST Status: Full Code Meds/Allgy - Home Medications Home Medications: Ambulatory Orders Medication Instructions Recorded Confirmed Acetaminophen [Tylenol Extra 1,000 mg PO Q6H PRN 05/04/16 08/31/17 Strength] Pantoprazole [Protonix] 40 mg PO DAILY 08/27/17 08/31/17 Rivaroxaban [Xarelto] 15 mg PO 0800,1700 #35 tablet 08/30/17 08/31/17 Rivaroxaban [Xarelto] 20 mg PO DAILY #30 tablet 08/30/17 08/31/17 Thiamine HCl [Vitamin B-1] 100 mg PO DAILY #60 08/30/17 08/31/17 oxyCODONE [Roxicodone] 5 mg PO Q4HR PRN #28 tablet 08/30/17 08/31/17 Ciprofloxacin HCl [Cipro] 400 mg IV BID 08/31/17 08/31/17 - Allergies Allergies/Adverse Reactions: Allergies Allergy/AdvReac Type Severity Reaction Status Date / Time hydrocodone AdvReac Unknown Emesis Verified 08/31/17 16:13 Review of Systems - Other Findings Other Findings: Patient was in a poor historian secondary to lethargy a conference of review of systems was attempted and pertinent positives and negatives are stated above in the HPI. Exam - Vital Signs Reviewed Vital Signs: Yes Vital Signs: Vital Signs x48h Temp Pulse Pulse Resp BP BP Pulse Ox 08/31/17 21:37 37.4 C 94 16 133/65 H 96 08/31/17 21:10 88 18 126/70 97 08/31/17 20:25 90 16 123/65 96 - Physical Exam General Appearance: positive: Lethargic, Other (Unable to provide history) Eyes Bilateral: positive: Normal inspection, PERRL, EOMI, No lid inflammation, Conjunctivae nml, No scleral icterus ENT: positive: ENT inspection nml, Pharynx nml, Dry mucous membranes. negative : Purulent nasal drainage, Pharyngeal erythema, Oral lesions Neck: positive: Nml inspection, Thyroid nml, No JVD, Trachea midline. negative : Thyromegaly, Lymphadenopathy (R), Lymphadenopathy (L), Carotid bruit, Tracheal deviation Respiratory: positive: Chest non-tender, No respiratory distress, Rales ( Bibasilar), Rhonchi (Right sided) Cardiovascular: positive: No murmur, No gallop, Tachycardia Abdomen: positive: Tenderness (Tenderness over the right lower abdominal wall), Other (Patient has swelling with mild edema and significant tenderness and warmth of the right abdominal wall. In appearance it appears to look similar to the patient's right leg which also has edema from DVT however this area is very tender and warm to touch concerning for cellulitis. There is no erythema noted). negative: Guarding, Rebound, Hepatomegaly Back: positive: Nml inspection. negative: CVA tenderness (R), CVA tenderness (L ) Skin: positive: Warm. negative: Cyanosis, Diaphoresis, Pallor Extremities: positive: Non-tender, Full ROM, Pedal edema (Right lower extremity) . negative: Joint swelling Neurologic/Psychiatric: positive: CN's nml (2-12), Motor nml, Sensation nml, Other (Lethargic) Conclusion/Plan - Problem List (1) Acute encephalopathy Conclusion/Plan: Patient appears to be quite lethargic on presentation. At [facility] today the patient was increasingly lethargic with fever and tachycardia. It appears on presentation that the patient does have abdominal wall cellulitis as well as healthcare associated pneumonia both of which are likely contributing to the patient's encephalopathy. This appears to be a metabolic encephalopathy. Plan: We will give the patient IV antibiotics for treatment of healthcare associated pneumonia and cellulitis Patient does appear to be dehydrated and does have acute kidney injury she will be given IV fluids We will monitor the patient's mental status (2) Abdominal wall cellulitis Conclusion/Plan: Patient presented to the emergency department with lethargy, tachycardia and fever. The patient was found to have right lower abdominal wall swelling, tenderness and warmth. There was no signs of erythema but the skin was quite shiny and there was asymmetric swelling on the right side. Given the patient's lethargy, acute kidney injury, warmth and tenderness on examination this is thought likely to be a skin and soft tissue infection of the abdominal wall. CT of the abdomen did not reveal an abscess or any anterior abdominal process. There was findings of significant lymphadenopathy in the pelvic and retroperitoneal areas. The patient is also had extensive right leg DVT recently. Along with the possibility of cellulitis I am also concerned that this could be abdominal wall edema secondary to the patient's DVT which may be extending into the inferior vena cava and causing this abdominal wall edema. Also I am concerned about the extensive lymphadenopathy causing compression of the inferior vena cava which could also lead to abdominal wall swelling that is asymmetric. Plan: Patient will be given IV vancomycin and cefepime to cover cellulitis Blood cultures are pending Patient will be given IV fluids We will continue to monitor the patient's mental status. (3) HCAP (healthcare-associated pneumonia) Conclusion/Plan: The patient does present with acute encephalopathy and fever at [facility]. Presentation to the emergency department the patient does not have fever, respiratory distress, hypoxia but is tachycardic. The patient does not have a leukocytosis. The patient's chest x-ray does show a right upper lobe opacity which is worsening from previous exam and is concerning for an infiltrate. Given the patient's lethargy this is likely a healthcare associated pneumonia as she was recently hospitalized for several days. Plan: Patient will be given IV vancomycin and cefepime for treatment of healthcare associated pneumonia Blood cultures were obtained and are pending Patient will be given IV fluids Oxygen as needed (4) LAURA (acute kidney injury) Conclusion/Plan: Patient presents with lethargy, fever, tachycardia and is found to have healthcare associated pneumonia and abdominal wall cellulitis for which the patient will need IV antibiotics. The patient does appear significantly dry on examination and her creatinine is elevated to 2.1 from 0.9 just yesterday. It would be difficult for the patient to become this dehydrated and just less than 24 hours therefore it appears there is likely some other reason for the acute kidney injury. The patient does have significant hydroureter the patient does have significant hydronephrosis and hydroureter on CT scanning. It is possible that due to the significant lymphadenopathy in the pelvic and retroperitoneal areas the patient may be having compression of her ureters or bladder leading to the hydronephrosis and hydroureter. The patient may also have a mass or tumor in the retroperitoneal cavity that is not visible on the CT which could be causing this hydronephrosis. The patient's acute kidney injury is likely obstructive from this process. Plan: Patient will be given a Ghosh catheter We will place patient on IV fluids We will continue to monitor the patient's creatinine (5) Hydronephrosis Conclusion/Plan: The patient has hydronephrosis and hydroureter in the setting of an acute kidney injury. Hydronephrosis and hydroureter are likely secondary to the extensive lymphadenopathy in the retroperitoneal area which may be compressing the patient's bladder or ureters causing this backup of fluid into the kidneys. The patient may also have some tumor burden that is not seen on CT. Either way this appears to be secondary to metastatic cancer. Plan: Patient will be placed on a Ghosh catheter Patient will be given IV fluids We will continue to monitor the patient's creatinine (6) Hyponatremia Conclusion/Plan: The patient's sodium is 133 on presentation which is slightly decreased. Patient appears to have hypovolemic hyponatremia Patient will be given IV fluids and will continue to monitor the sodium (7) Right leg DVT Conclusion/Plan: The patient does have right leg DVT in the common femoral and superficial femoral veins as well as right inguinal adenopathy. The patient's DVTs may actually extend higher into the inferior vena cava and the extensive DVTs may be partly causing the swelling of the right abdominal cavity. 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 The patient is status post craniotomy and chemoradiation in [place]. The patient's health appears to be declining significantly as this is her third hospitalization in less than 2 weeks. The patient continues to come in for repeated infections. The patient does not look well and her health appears to be deteriorating quickly. With the patient's hydronephrosis and hydroureter in the setting of acute kidney injury we are concerned about significant tumor and lymph node burden in the pelvic and retroperitoneal area which may be leading to the above. If this is the case and patient's creatinine continues to worsen and the patient's prognosis is very poor and the most appropriate treatment at that point would be palliative care or hospice. If the patient wants more aggressive treatment we will need to contact a tertiary care center. Plan: We will continue patient on pain control with oxycodone We will consult palliative care SCENE PAINTER Dr. Stella Santiago - Lab Results Lab results reviewed: Yes Fish Bones: 08/31/17 16:28 08/31/17 16:28 Other Lab Results: Laboratory Results WBC 10.5 x10^3/uL (4.8-10.8) 08/31/17 16:28 RBC 3.26 10^6/uL (4.20-5.40) L 08/31/17 16:28 Hgb 9.9 g/dL (12.0-16.0) L 08/31/17 16:28 Hct 29.6 % (37.0-47.0) L 08/31/17 16:28 MCV 90.9 fL (81.0-99.0) 08/31/17 16:28 MCH 30.5 pg (27.0-31.0) 08/31/17 16:28 MCHC 33.5 g/dL (32.0-36.0) 08/31/17 16:28 RDW 16.9 % (12.0-15.0) H 08/31/17 16:28 Plt Count 210 10^3/uL (130-450) 08/31/17 16:28 MPV 7.1 fL (7.9-10.8) L 08/31/17 16:28 Neut # 9.1 10^3/uL (1.5-6.6) H 08/31/17 16:28 Lymph # 0.8 10^3/uL (1.5-3.5) L 08/31/17 16:28 [place] # 0.4 10^3/uL (0.0-1.0) 08/31/17 16:28 Eos # 0.0 10^3/uL (0.0-0.7) 08/31/17 16:28 Baso # 0.0 10^3/uL (0.0-0.1) 08/31/17 16:28 Absolute Nucleated RBC 0.00 x10^3/uL 08/31/17 16:28 Nucleated RBC % 0.0 /100WBC 08/31/17 16:28 Sodium 133 mmol/L (135-145) L 08/31/17 16:28 Potassium 3.8 mmol/L (3.5-5.0) 08/31/17 16:28 Chloride 102 mmol/L (101-111) 08/31/17 16:28 Carbon Dioxide 19 mmol/L (21-32) L 08/31/17 16:28 Anion Gap 12.0 (6-13) 08/31/17 16:28 BUN 36 mg/dL (6-20) H 08/31/17 16:28 Creatinine 2.1 mg/dL (0.4-1.0) H 08/31/17 16:28 Estimated GFR (MDRD) 23 (>89) L 08/31/17 16:28 Glucose 131 mg/dL (70-100) H 08/31/17 16:28 Lactic Acid 1.9 mmol/L (0.5-2.2) 08/31/17 16:33 Calcium 8.4 mg/dL (8.5-10.3) L 08/31/17 16:28 Total Bilirubin 0.4 mg/dL (0.2-1.0) 08/31/17 16:28 AST 19 IU/L (10-42) 08/31/17 16:28 ALT 13 IU/L (10-60) 08/31/17 16:28 Alkaline Phosphatase 75 IU/L (42-121) 08/31/17 16:28 Total Protein 5.7 g/dL (6.7-8.2) L 08/31/17 16:28 Albumin 1.9 g/dL (3.2-5.5) L 08/31/17 16:28 Globulin 3.8 g/dL (2.1-4.2) 08/31/17 16:28 Albumin/Globulin Ratio 0.5 (1.0-2.2) L 08/31/17 16:28 Lipase 27 U/L (22-51) 08/31/17 16:28 Urine Color YELLOW 08/31/17 17:07 Urine Clarity CLEAR (CLEAR) 08/31/17 17:07 Urine pH 6.0 PH (5.0-7.5) 08/31/17 17:07 Ur Specific [place] <=1.005 (1.002-1.030) 08/31/17 17:07 Urine Protein NEGATIVE mg/dL (NEGATIVE) 08/31/17 17:07 Urine Glucose (UA) NEGATIVE mg/dL (NEGATIVE) 08/31/17 17:07 Urine Ketones NEGATIVE mg/dL (NEGATIVE) 08/31/17 17:07 Urine Occult Blood TRACE-INTA (NEGATIVE) 08/31/17 17:07 Urine Nitrite NEGATIVE (NEGATIVE) 08/31/17 17:07 Urine Bilirubin NEGATIVE (NEGATIVE) 08/31/17 17:07 Urine Urobilinogen 0.2 (NORMAL) E.U./dL (NORMAL) 08/31/17 17:07 Ur Leukocyte Esterase NEGATIVE (NEGATIVE) 08/31/17 17:07 Ur Microscopic Review NOT INDICATED 08/31/17 17:07 Urine Culture Comments NOT INDICATED 08/31/17 17:07 - Diagnostic Imaging Results Diagnostic Imaging Results: positive: Final report reviewed Diagnostic Imaging Results Comments: Chest x-ray Impression: 1. Worsening right upper lobe opacities suspicious for infiltrates in this patient with a cough. 2. Bronchial wall thickening which could be associated with bronchitis or reactive airway disease. CT abdomen/pelvis Impression: 1. Persistent bilateral hydronephrosis and hydroureter down to the mid pelvis. 2. Persistent pulmonary nodules and retroperitoneal, mesenteric, pelvic, and inguinal lymphadenopathy. 3. Gas and fluid within the endometrium. 4. Stable bladder wall thickening, especially posteriorly. Issues/Core Measures - Anticipated LOS Anticipated Stay Length: 2 or more midnights - DVT/VTE - Prophylaxis VTE/DVT Device ordered at admit?: Yes
[2017-09-01] MEDS: SODIUM CHLORIDE 0.9% 1,000 ML IV SCH ×3 (04:54→13:31)
[2017-09-01] MEDS: SODIUM CHLORIDE FLUSH 0.9% 10 ML SYRINGE IVP SCH ×3 (06:38→20:56)
[2017-09-01] MEDS ORDERED: PANTOPRAZOLE 40 MG TABLET PO SCH (07:00)
[2017-09-01] MEDS ORDERED: VANCOMYCIN INJ 1 GM in SODIUM CHLORIDE 0.9% 250 ML IV SCH (08:00)
[2017-09-01] MEDS: oxyCODONE 5 MG TABLET PO PRN (08:11)
[2017-09-01] MEDS ORDERED: THIAMINE 100 MG TABLET PO SCH (09:00)
[2017-09-01] MEDS ORDERED: POLYETHYLENE GLYCOL 3350 17 GM PACKET PO SCH (09:00)
[2017-09-01] MEDS ORDERED: VANCOMYCIN INJ 0.75 GM in SODIUM CHLORIDE 0.9% 250 ML IV SCH (10:00)
[2017-09-01] MEDS: oxyCODONE 5 MG TABLET PO SCH ×3 (10:24→16:34)
[2017-09-01] MEDS: SACCHAROMYCES BOULARDII 250 MG CAPSULE PO SCH ×2 (10:24→16:34)
[2017-09-01] MEDS: RIVAROXABAN 15 MG TABLET PO SCH ×2 (10:24→18:08)
[2017-09-01 11:52] LABS: BASOPHILS % (AUTO) 0.2 %; EOSINOPHILS % (AUTO) 0.3 %; HCT - HEMATOCRIT 26.9 % (37.0-47.0); LYMPHOCYTES # (AUTO) 1.4 10^3/uL (1.5-3.5); LYMPHOCYTES % (AUTO) 9.7 %; MEAN CORPUSCULAR HEMOGLOBIN 30.4 pg (27.0-31.0); MEAN CORPUSCULAR HGB CONC 33.5 g/dL (32.0-36.0); MEAN CORPUSCULAR VOLUME 90.7 fL (81.0-99.0); MEAN PLATELET VOLUME 7.5 fL (7.9-10.8); MONOCYTES # (AUTO) 0.4 10^3/uL (0.0-1.0); MONOCYTES % (AUTO) 2.9 %; NEUTROPHILS # (AUTO) 12.9 10^3/uL (1.5-6.6); NEUTROPHILS % (AUTO) 86.9 %; RED BLOOD COUNT 2.96 10^6/uL (4.20-5.40); RED CELL DISTRIBUTION WIDTH 17.3 % (12.0-15.0); UNCORRECTED WHITE BLOOD COUNT 14.8 x10^3/uL; WHITE BLOOD COUNT 14.8 x10^3/uL (4.8-10.8)
--- NOTE | 2017-09-01 12:27 | PROVIDER PROGRESS NOTE ---
Subjective - Prog Note Date Prog Note Date: 09/01/17 Prog Note Time: 12:25 - Subjective Subjective: This morning the first thing she asked before was pain medicine. She was crying out with the pain. Stating it was in her abdomen, in her lower back, left hip. Overnight, she had slept quite well, nursing did not want a wake her so she did not receive any of her pain meds. This morning she stated that even if it is to wake her up to give her her pain medicines because the pain is too severe for her to catch up on. Since that time, pain is much better control. But she is sleepy. She is aware she is in the hospital. Not eating. , mom and stepdad are at the bedside and we did some advance care planning. Temperature was 38.3 at around 4: 50 in the morning and she has slight tachycardia Current Medications - Current Medications Current Medications: Active Medications Acetaminophen (Tylenol) 650 mg PO Q4HR PRN PRN Reason: Pain 1 to 4 Albuterol () 2.5 mg INH Q4HR PRN PRN Reason: Wheezing Sodium Chloride (Normal Saline 0.9%) 1,000 mls @ 150 mls/hr IV .Q6H40M [facility] Last Admin: 09/01/17 12:26 Dose: Not Given Cefepime HCl 1 gm/ Sodium (Chloride) 100 mls @ 200 mls/hr IV Q24H [facility] Last Infusion: 08/31/17 23:00 Dose: Infused Vancomycin HCl 1 gm/ Sodium (Chloride) 250 mls @ 167 mls/hr IV Q24H [facility] Last Infusion: 09/01/17 11:50 Dose: Infused Ondansetron HCl (Zofran Inj) 4 mg IVP Q6HR PRN PRN Reason: Nausea / Vomiting Oxycodone HCl (Roxicodone) 5 mg PO Q4HR PRN PRN Reason: Pain 5 to 7 Oxycodone HCl (Roxicodone) 10 mg PO Q6H [facility] Last Admin: 09/01/17 10:24 Dose: Not Given Pantoprazole Sodium (Protonix) 40 mg PO QDAC [facility] Last Admin: 09/01/17 08:12 Dose: 40 mg Polyethylene Glycol (Miralax) 17 gm PO DAILY [facility] Last Admin: 09/01/17 10:24 Dose: Not Given Prochlorperazine Edisylate (Compazine Inj) 10 mg IVP Q6HR PRN PRN Reason: Nausea / Vomiting Rivaroxaban (Xarelto) 15 mg PO 0800,1700 [facility] Stop: 09/08/17 21:00 Last Admin: 09/01/17 10:24 Dose: 15 mg Rivaroxaban (Xarelto) 20 mg PO DAILYWM [facility] Saccharomyces Boulardii (Florastor) 250 mg PO BIDWM [facility] Last Admin: 09/01/17 10:24 Dose: 250 mg Sodium Chloride (Normal Saline Flush 0.9%) 10 ml IVP PRN PRN PRN Reason: NEEDED PER PROVIDER ORDERS Sodium Chloride (Normal Saline Flush 0.9%) 10 ml IVP Q8HR [facility] Last Admin: 09/01/17 12:27 Dose: Not Given Thiamine HCl (Vitamin B-1) 100 mg PO DAILY [facility] Last Admin: 09/01/17 10:24 Dose: 100 mg Zolpidem Tartrate (Ambien) 5 mg PO QPM PRN PRN Reason: Insomnia Acetaminophen [Tylenol Extra Strength] 1,000 mg PO Q6H PRN 05/04/16 Pantoprazole [Protonix] 40 mg PO DAILY 08/27/17 Ciprofloxacin HCl [Cipro] 400 mg IV BID 08/31/17 Objective - Vital Signs/Intake & Output Reviewed Vital Signs: Yes Vital Signs: Vital Signs x48h Temp Pulse Resp BP Pulse Ox 09/01/17 08:09 37.5 C 113 H 18 125/58 L 96 09/01/17 04:59 38.3 C H 117 H 17 137/61 H 96 Intake & Output: Intake & Output 08/29/17 08/30/17 08/31/17 09/01/17 23:59 23:59 23:59 23:59 Intake Total 400 1927.5 Output Total 250 Balance 150 1927.5 - Objective General Appearance: positive: No acute distress, Lethargic, Other (middled aged white female with slight cushinoid appearance, alopecia, glasses, smiles when she sees me in recognition) Eyes Bilateral: positive: PERRL ENT: positive: Dry mucous membranes Neck: positive: No JVD. negative: Lymphadenopathy (R), Lymphadenopathy (L), Stiff neck Respiratory: positive: Chest non-tender, No respiratory distress, Rhonchi ( slight in mid lung vee). negative: Wheezes, Rales Cardiovascular: positive: Regular rate & rhythm. negative: JVD present, Gallop/ S4, Friction rub Abdomen: positive: No distention, Tenderness (in right mid abd and rlq but not severe, grimaces with discomfort of palpation but no rebound or guarding), Abnml bowel sounds (quiet). negative: Hepatomegaly, Splenomegaly Skin: positive: Warm, Dry, Other (shiny tight edema of right leg up to right groin and into the skin, muscle of RLQ of abd) Extremities: positive: Pedal edema (right leg). negative: Nml appearance ( right leg, tight swelling, no redness or pinkness) Neurologic/Psychiatric: positive: Disoriented to place, Disoriented to time. negative: CN's nml (2-12) (right facial droop that is old), Motor nml (right arm and hand weakness that is old, not worse than before) - Lab Results Fish Bones: 09/01/17 08:15 08/31/17 16:28 Other Labs: Lab Results x24hrs 09/01/17 Range/Units 08:15 WBC 14.8 H (4.8-10.8) x10^3/uL RBC 2.96 L (4.20-5.40) 10^6/uL Hgb 9.0 L (12.0-16.0) g/dL Hct 26.9 L (37.0-47.0) % MCV 90.7 (81.0-99.0) fL MCH 30.4 (27.0-31.0) pg MCHC 33.5 (32.0-36.0) g/dL RDW 17.3 H (12.0-15.0) % Plt Count 191 (130-450) 10^3/uL MPV 7.5 L (7.9-10.8) fL Neut # 12.9 H (1.5-6.6) 10^3/uL Lymph # 1.4 L (1.5-3.5) 10^3/uL [place] # 0.4 (0.0-1.0) 10^3/uL Eos # 0.0 (0.0-0.7) 10^3/uL Baso # 0.0 (0.0-0.1) 10^3/uL Absolute Nucleated RBC 0.00 x10^3/uL Nucleated RBC % 0.0 /100WBC Assessment/Plan - Problem List (1) Acute encephalopathy Impression: metabolic Patient appears to be quite lethargic on presentation. [facility] today the patient was increasingly lethargic with fever and tachycardia. It appears on presentation that the patient does have abdominal wall cellulitis as well as healthcare associated pneumonia both of which are likely contributing to the patient's encephalopathy. Slight improvement this am. Pain really woke her up and then she's back to being sleepy, slow/slow/slow to respond. She already has psychomotor slowing and cognitive deficit from her craniotomy and radiation, and this acute change is on top of that. CT of head was done 5 days ago and showed only old changes of surgery, no new mets. I would consider an MRI to see if there is recurrence, but has opted to transition to Hospice. Plan: We will give the patient IV antibiotics for treatment of healthcare associated pneumonia and cellulitis. Day #2 of Cefipime and Vancomycin. Patient does appear to be dehydrated and does have acute kidney injury she will be given IV fluids Patient's mental status very slightly improved but not by much. (2) Abdominal wall cellulitis Conclusion/Plan: Patient presented to the emergency department with lethargy, tachycardia and fever. The patient was found to have right lower abdominal wall swelling, tenderness and warmth. There was no signs of erythema but the skin was quite shiny and there was asymmetric swelling on the right side. Given the patient's lethargy, acute kidney injury, warmth and tenderness on examination this is thought likely to be a skin and soft tissue infection of the abdominal wall. CT of the abdomen did not reveal an abscess or any anterior abdominal process. There was findings of significant lymphadenopathy in the pelvic and retroperitoneal areas. The patient is also had extensive right leg DVT recently. Along with the possibility of cellulitis I am also concerned that this could be abdominal wall edema secondary to the patient's DVT which may be extending into the inferior vena cava and causing this abdominal wall edema. Also I am concerned about the extensive lymphadenopathy causing compression of the inferior vena cava which could also lead to abdominal wall swelling that is asymmetric. Plan: Patient will be given IV vancomycin and cefepime to cover cellulitis, Day # 2 today. Blood cultures have been drawn and are pending Patient will be given IV fluids We will continue to monitor the patient's mental status. (3) HCAP (healthcare-associated pneumonia) Conclusion/Plan: The patient does present with acute encephalopathy and fever at [facility]. Presentation to the emergency department the patient did not have fever, respiratory distress, hypoxia but is tachycardic. Fever came to 38.3 at 4:50 this morning. The patient does not have a leukocytosis in the ER but does now to 14.8. The patient's chest x-ray does show a right upper lobe opacity which is worsening from previous exam and is concerning for an infiltrate. Given the patient's lethargy this is likely a healthcare associated pneumonia as she was recently hospitalized for several days. Plan: Patient will be given IV vancomycin and cefepime for treatment of healthcare associated pneumonia, Day #2. Blood cultures were obtained and are pending Patient will be given IV fluids Oxygen as needed (4) LAURA (acute kidney injury) Conclusion/Plan: Patient presents with lethargy, fever, tachycardia and is found to have healthcare associated pneumonia and abdominal wall cellulitis for which the patient will need IV antibiotics. The patient does appear significantly dry on examination and her creatinine is elevated to 2.1 from 0.9 just yesterday. It would be difficult for the patient to become this dehydrated and just less than 24 hours therefore it appears there is likely some other reason for the acute kidney injury. The patient does have significant hydroureter the patient does have significant hydronephrosis and hydroureter on CT scanning. It is possible that due to the significant lymphadenopathy in the pelvic and retroperitoneal areas the patient may be having compression of her ureters or bladder leading to the hydronephrosis and hydroureter. The patient may also have a mass or tumor in the retroperitoneal cavity that is not visible on the CT which could be causing this hydronephrosis. The patient's acute kidney injury is likely obstructive from this process. Plan: Patient will be given a Ghosh catheter We will place patient on IV fluids We will continue to monitor the patient's creatinine (5) Hydronephrosis Conclusion/Plan: The patient has hydronephrosis and hydroureter in the setting of an acute kidney injury. Hydronephrosis and hydroureter are likely secondary to the extensive lymphadenopathy in the retroperitoneal area which may be compressing the patient's bladder or ureters causing this backup of fluid into the kidneys. The patient may also have some tumor burden that is not seen on CT. Either way this appears to be secondary to metastatic cancer. Plan: Patient will be placed on a Ghosh catheter Patient will be given IV fluids We will continue to monitor the patient's creatinine (6) Hyponatremia Conclusion/Plan: The patient's sodium is 133 on presentation which is slightly decreased. Patient appears to have hypovolemic hyponatremia Patient will be given IV fluids and will continue to monitor the sodium She had one ordered for this am and not done. I have contacted lab and they will rectify omission. (7) Right leg DVT Conclusion/Plan: The patient does have right leg DVT in the common femoral and superficial femoral veins as well as right inguinal adenopathy. The patient's DVTs may actually extend higher into the inferior vena cava and the extensive DVTs may be partly causing the swelling of the right abdominal cavity. 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 The patient is status post craniotomy and chemoradiation in [place]. The patient's health appears to be declining significantly as this is her third hospitalization in less than 2 weeks. The patient continues to come in for repeated infections. The patient does not look well and her health appears to be deteriorating quickly. With the patient's hydronephrosis and hydroureter in the setting of acute kidney injury we are concerned about significant tumor and lymph node burden in the pelvic and retroperitoneal area which may be leading to the above. If this is the case and patient's creatinine continues to worsen and the patient's prognosis is very poor and the most appropriate treatment at that point would be palliative care or hospice. If the patient wants more aggressive treatment we will need to contact a tertiary care center. However, her would now like Hospice. I have discussed with mom and step dad, and they are NOT happy. Plan: We will continue patient on pain control with oxycodone and I have changed to order to a fixed schedule and not prn. We will consult Hospice care with Dr. Proctor.
[2017-09-01 13:29] LABS: CREATININE 2.9 mg/dL (0.4-1.0); POTASSIUM 4.7 mmol/L (3.5-5.0)
[2017-09-01] MEDS ORDERED: LORazepam 0.5 MG TABLET SL PRN (16:47)
[2017-09-01] MEDS ORDERED: SCOPOLAMINE PATCH TOP PRN (18:39)
[2017-09-01] MEDS: MORPHINE SOL 10 MG/0.5 ML SYRINGE PO PRN ×3 (18:49→22:50)
[2017-09-02] MEDS: MORPHINE SOL 10 MG/0.5 ML SYRINGE PO PRN ×3 (04:20→13:41)
[2017-09-02 06:40] LABS: BASOPHILS % (AUTO) 0.1 %; CALCIUM 8.2 mg/dL (8.5-10.3); CREATININE 3.2 mg/dL (0.4-1.0); EOSINOPHILS % (AUTO) 0.3 %; HGB - HEMOGLOBIN 8.4 g/dL (12.0-16.0); LYMPHOCYTES % (AUTO) 6.9 %; MEAN CORPUSCULAR HEMOGLOBIN 30.4 pg (27.0-31.0); MEAN CORPUSCULAR HGB CONC 33.4 g/dL (32.0-36.0); MEAN CORPUSCULAR VOLUME 90.8 fL (81.0-99.0); MEAN PLATELET VOLUME 7.4 fL (7.9-10.8); MONOCYTES # (AUTO) 0.3 10^3/uL (0.0-1.0); NEUTROPHILS # (AUTO) 12.8 10^3/uL (1.5-6.6); NEUTROPHILS % (AUTO) 90.7 %; NUCLEATED RED BLOOD CELLS AUTO 0.1 /100WBC; RED BLOOD COUNT 2.75 10^6/uL (4.20-5.40); UNCORRECTED WHITE BLOOD COUNT 14.1 x10^3/uL; WHITE BLOOD COUNT 14.1 x10^3/uL (4.8-10.8)
[2017-09-02] MEDS: SODIUM CHLORIDE FLUSH 0.9% 10 ML SYRINGE IVP SCH (06:59)
[2017-09-02 09:04] VITALS: BP 120/55
--- NOTE | 2017-09-02 11:24 | Discharge Plan ---
Discharge Plan Disposition: 50 Hospice/Home DC/Xfer Condition: Serious Prescriptions: LORazepam [Lorazepam Intensol] 2 mg PO Q1H PRN #30 ml PRN Reason: Agitation Morphine Sulfate [Morphine Sulf Oral (Roxanol)] 10 mg PO Q1H PRN #30 ml PRN Reason: Pain/Dyspnea Diet: Regular Activity Restrictions: Activity as Tolerated No Smoking: If you smoke, Please STOP! Call for help.
--- NOTE | 2017-09-03 09:16 | DISCHARGE SUMMARY ---
DATE OF ADMISSION: 08/31/2017 DATE OF DISCHARGE: 09/02/2017 DISCHARGE DIAGNOSES 1. Acute metabolic encephalopathy secondary to #2, 3, and 4. 2. Serous ovarian cancer, metastatic to brain. 3. Hydronephrosis. 4. Acute kidney failure. 5. Healthcare-associated pneumonia. 6. Hyponatremia. 7. Right leg deep venous thrombosis. 8. Abdominal wall cellulitis. DISCHARGE MEDICATIONS 1. Roxanol drops 100 mg per 5 mL solution at 10 mg every 1 hour as needed for pain, agitation, shortn ess of breath. 2. Lorazepam 2 mg/mL oral concentration 2 mg p.o. q.1 hour p.r.n. agitation. PRINCIPAL PROCEDURES 1. Chest x-ray showing right upper lung opacities, suspicious for infiltrate versus metastatic diseas e. 2. Abdomen and pelvis CT showing stable mesenteric and left periaortic lymphadenopathy. Gas and fluid noted within the endometrium. Thick-walled bladder posteriorly. Bilateral external iliac and inguina l lymphadenopathy, stable. Persistent bilateral hydronephrosis and hydroureter down to the mid pelvis . Persistent pulmonary nodules and retroperitoneal, mesenteric, pelvic and inguinal lymphadenopathy. HOSPITAL COURSE: This is an unfortunate, 67-year-old woman who has serous carcinoma of the ovary with metastatic disease to the brain. She went to [place], [place], for [facility] for maria luisa atment this fall, and was there for 6 weeks; and received radiation, chemotherapy, as well as craniot monse to remove metastatic brain disease. She did say that she had a hysterectomy to remove part of the tumor. She was back on [facility] 6 days after returning from [place] when she presented with an episode of urosepsis, August 19. She was discharged, a bacteria identified before discharge with appropria te antibiotic therapy. She then came back again with further sepsis August 27, again sepsis. This t romaine, a CT confirmed hydronephrosis. She was sent to [facility] to complete her IV antibiotic therapy. While at [facility], spiked a temperature, had altered mental status, and was ricardo t back of third time. With this episode, she has been identified as having healthcare-associated pneu monia. Her right leg continues to have the tightness and shininess of a DVT and swollen leg. However, , the tightness shininess has extended up through her upper abdominal wall and there is question of p ossible abdominal wall cellulitis. CT of the abdomen confirmed the continued hydronephrosis, fluid fi lled uterus. Electrolyte abnormalities of hyponatremia, acute renal failure and an elevated white chris l count with chronic anemia were present. She was begun on empiric antibiotic therapy for healthcare- associated pneumonia, and begun on IV fluids. While she did improve somewhat, she never really went b ack to her baseline. Baseline was already impaired in that she had psychomotor slowing from previous craniotomy, and cognitive deficits. Speech, even on a good day, was slowed, with thought process trey y. With this current episode of illness, she remained moderately encephalopathic, in spite of treatme nt. Conversations ensued between and hospitalist service, and the patient's mom, his moth er-in-law. He was now in favor of transitioning the patient to hospice. Mom was resistant to this. In the end, the was gently insistent. He felt that his really did not have a quality of li fe. The prognosis was poor. We did not anticipate her recovering overall from this cancer and the hyd ronephrosis. As such, hospice consult was obtained. The same day, the asked us to please transition her to comfort measures only with regard to pain medicines and nausea medicines and anxiety medicines. Initially, she was to go to her mother's house, but again the differences in philosophy of her care e nsued. As such, she ended up being discharged to her own home with her to care for her with tiffany olguin. He also has some support via friends that she has. Some of them are nursing friends to help tiffany mcginnis as well. Greater than 30 minutes was spent in discharge. Temperature at discharge was 38.4, pulse 108, blood pressure 120/55, respirations 16, 94% on room air . She is sedated, snoring in her respiration, but no increased respiratory effort or labored breathin g. She has a slightly tachycardic, regular rate and rhythm. Coarse upper airway sounds with dull righ t lung bases. She has a regular rate and rhythm that is tachycardic with a soft systolic murmur. The abdomen is slightly distended, and she grimaces with pain on palpation, but no rebound, no guarding, and there are hypoactive bowel sounds. The right leg is tight with a DVT, and the shininess and edema extend up into the anterior abdominal wall from the right leg. She is in poor condition. appears imminent in the next few days. JOB #: [id number] EXT JOB #:[id number]
[2017-09-09] MEDS ORDERED: RIVAROXABAN 10 MG TABLET PO SCH (08:00)
== END 2017-09-02 14:20 | disposition hospice, home (50) | DRG 70 ==
LOC: EDUNIT# → ED 15:57 → MS2 20:22
PROVIDERS: ADMIT Internal Medicine; ATTEND Specialist
DX: G93.41 Metabolic encephalopathy (principal); J18.9 Pneumonia, unspecified organism; C56.1 Malignant neoplasm of right ovary; C56.2 Malignant neoplasm of left ovary; N13.30 Unspecified hydronephrosis; N17.9 Acute kidney failure, unspecified; E87.1 Hypo-osmolality and hyponatremia; I82.411 Acute embolism and thrombosis of right femoral vein; L03.311 Cellulitis of abdominal wall; N13.4 Hydroureter; C77.5 Secondary and unspecified malignant neoplasm of intrapelvic lymph nodes; C79.31 Secondary malignant neoplasm of brain; R59.0 Localized enlarged lymph nodes; E86.0 Dehydration; G62.9 Polyneuropathy, unspecified; D64.89 Other specified anemias; R91.8 Other nonspecific abnormal finding of lung field; Y95 Nosocomial condition; Z92.3 Personal history of irradiation; Z79.891 Long term (current) use of opiate analgesic; Z79.899 Other long term (current) drug therapy; Z92.21 Personal history of antineoplastic chemotherapy
CPT/HCPCS: 36415; 51701; 71020; 74176; 80048; 80053; 81001; 81003; 83605; 83690; 85025; 87040; 87086; 96361; 96365; 96367; 96375; 99284; 99285

== ENCOUNTER 2017-09-02 14:16 | Outpatient (CLI) | payer OTHER, MEDICARE | END 2017-09-02 14:17 | disposition home or self-care (01) | LOC: EMS 14:16 | PROVIDERS: ATTEND Surgery | DX: Z74.01 Bed confinement status (principal); Z51.5 Encounter for palliative care | CPT/HCPCS: A0425; A0428 ==